=== PATIENT | male | born 1950 | race Caucasian/White ===

== ENCOUNTER 2018-06-14 10:39 | Outpatient (CLI) | payer MEDICARE, SELFPAY ==
--- NOTE | 2018-06-14 10:39 | DI.REPORT_ITS ---
SYMPTOMS/DIAGNOSIS: CHRONIC HEP C W/O HEPATIC COMA, B18.2, ? ADV FIBROSIS, ASSESS FOR SIGNS OF CIRRHOSIS ABDOMINAL ULTRASOUND: Routine examination. The proximal aorta was obscured by overlying bowel. The mid and distal aorta is of normal caliber. The liver is normal in size. There is diffuse increased echogenicity of the liver consistent with hepatic steatosis. Portal venous flow is normal. There does appear to be tiny echogenic focus in the right lobe of the liver which may represent a granuloma. No stones are seen within the gallbladder. No pericholecystic fluid is present. There does appear to be some irregular thickening of the wall of the gallbladder measuring just greater than 4 mm in thickness. There is a negative sonographic Jeong's sign. The common duct is distended at 1.2 cm. The pancreas, spleen and kidneys are unremarkable except for a 2.3 cm simple cyst in the right renal pelvis. IMPRESSION: 1. Thickening of the wall of the gallbladder with dilatation of the common duct to 1.2 cm. Further evaluation with a CT scan and/or MRCP is recommended. 2. Hepatic steatosis.
[2018-06-15 17:05] LABS: HBV DNA Detect/Quant, PCR Undetected IU/mL (Undetected)
== END 2018-06-14 10:40 ==
PROVIDERS: PCP Family Medicine; Visit Provider Physician Assistant Medical
DX: R76.8 Other specified abnormal immunological findings in serum (principal); B18.2 Chronic viral hepatitis C; K82.9 Disease of gallbladder, unspecified; K76.0 Fatty (change of) liver, not elsewhere classified
CPT/HCPCS: 76700; 36415; 87517

== ENCOUNTER 2018-10-06 17:35 | Outpatient (CLI) | payer MEDICARE, SELFPAY ==
[2018-10-06 18:15] LABS: Abs Immature Grans 0.11 k/cumm (0.0-0.09); Absolute Basophil Count 0.04 k/cumm (0.0-0.2); Absolute Eosinophil Count 0.17 k/cumm (0.0-0.7); Absolute Lymphocyte Count 2.07 k/cumm (1.2-3.4); Absolute Monocyte Count 1.22 k/cumm (0.11-0.7); Basophils % 0.5; HCT 44.4 % (40.0-50.0); HGB 15.1 g/dL (13.5-17.5); Immature Grans % 1.3; Lymphocytes % 24.6; Mean Corpuscular Hemoglobin 32.1 pg (27.0-33.0); Mean Corpuscular Volume 94.3 fL (80-95); Monocytes % 14.5; Neutrophils % 57.1; Platelet Count 201 x1000/uL (130-400); RBC 4.71 m/cumm (4.50-6.00); RBC Distribution Width 13.2 % (11.8-14.1); White Blood Cell Count 8.41 k/cumm (4.4-10.8)
[2018-10-06 19:25] LABS: ALT 26 U/L (12-78); AST 29 U/L (15-37); Albumin 3.7 g/dL (3.4-5.0); Alkaline Phosphatase 80 U/L (46-116); Anion Gap 11.4 mmol/L (3-11); BUN 7 mg/dL (7-18); Bilirubin, Total 0.7 mg/dL (0.2-1.0); CO2 25.6 mmol/L (21.0-32.0); CREATININE 0.63 mg/dL (0.70-1.30); Calcium 8.8 mg/dL (8.5-10.1); Chloride 98 mmol/L (98-107); Glucose 113 mg/dL (70-100); Potassium 3.7 mmol/L (3.5-5.1); Sodium 135 mmol/L (136-145); Total Protein 7.4 g/dL (6.4-8.2)
[2018-10-10 11:07] LABS: Hepatitis B Surface Ag Negative (NEGAT)
[2018-10-10 15:12] LABS: HCV RNA Detection Quantitative Undetected IU/mL (UNDECT)
== END 2018-10-06 17:55 ==
PROVIDERS: PCP Family Medicine; Visit Provider Physician Assistant Medical
DX: Z20.5 Contact with and (suspected) exposure to viral hepatitis (principal); B18.2 Chronic viral hepatitis C
CPT/HCPCS: 80053; 87340; 85025; 87522

== ENCOUNTER 2018-10-15 14:40 | Emergency (ER) | payer MEDICARE, SELFPAY ==
[2018-10-15 14:50] VITALS: BP 142/78; PULSE 100; RESP 16; TEMP 36.8; O2SAT 97
--- NOTE | 2018-10-15 15:21 | ED.GENADUL_ITS ---
Discharge Plan Disposition Patient Disposition: HOME Condition: Good Discharge Details Chief Complaint: SutureRem Clinical Impression: Encounter for staple removal Primary Care Provider: Ena Boo V ED Provider: Bassem Jeffries Home Meds and New Rx's Prescriptions: No Action trazodone 50 MG tablet 50 mg PO DAILY RF: 0 gabapentin 300 MG capsule 300 mg PO TID RF: 0 methadone 5 MG tablet 10 mg PO 10 tabs daily RF: 0 Discharge Instructions Instructions: Staple Care (ED) Additional Instructions: Continue to watch for any signs of infection and return immediately if these occur otherwise you may wash and clean the wound with mild soapy water. Follow- up with primary care provider as needed or return emergency department for any further emergent concerns you may have Referrals: Ena Boo MD [Primary Care Provider] - (As needed for reassessment) Discharge Data Discharge Date/Time-TO BE ENTERED AT DEPARTURE: 10/15/18 15:25 Medical Decision Making Patient presenting the emergency department for staple removal. Patient had 7 alireza placed in his head 1 week ago after head injury. Patient denies any new or worsening symptoms and states that he is simply here for staple removal. 7 alireza removed from patient's head without complication. Patient was encouraged to watch for signs of infection return for any new or worsening symptom HPI General Mode of arrival: ambulatory . Date/Time Provider Initiated Documentation: 10/15/18 14:50 . Limitations to Documentation: no limitations . Information obtained by: patient and RN notes reviewed . History of Present Illness 68 year old M presents to the emergency department with the chief complaint of Staple removal, Quality is described as other (denies pain), and is localized to the head. Patient notes no other symptoms.. Patient did receive the following treatments prior to arrival, none Related Data Home Medications Medication Instructions Recorded Confirmed gabapentin 300 mg PO TID tab-cap 02/10/16 methadone 10 mg PO 10 tabs daily tab-cap 02/10/16 trazodone 50 mg PO DAILY tab-cap 02/10/16 Allergies Allergy/AdvReac Type Severity Reaction Status Date / Time No Known Allergies Allergy Unverified 02/13/16 11:08 General Stated Complaint: SutureRem PRIMO: 5 Review of Systems Constitutional Denies chills, Denies fever(s) and Denies headache(s) ENT Denies dizziness and Denies headache(s) Cardiovascular Denies syncope Integumentary/Breasts Denies rash and Denies skin swelling Neurologic Denies dizziness, Denies syncope, Denies headache(s) and Denies lack of coordination [facility] Medical History Chronic pain due to trauma Compression fracture of lumbar vertebra DJD (degenerative joint disease) Depression Glaucoma Hepatitis C Iron deficiency anemia Narcotic dependence Testosterone deficiency Traumatic amputation of finger Surgical History traumatic amputation Social History Smoking/Tobacco Use Status: Current every day Exam Const General: cooperative, comfortable and no acute distress Orientation: alert, awake and oriented x3 HENMT Head: laceration (7 alireza placed superior scalp.No erythema, purulent drainage) Skin Rashes: no rashes Course Vital Signs Temperature 36.8 C 10/15/18 14:50 Pulse 100 H 10/15/18 14:50 Respiratory Rate 16 10/15/18 14:50 Blood Pressure 142/78 H 10/15/18 14:50 Pulse Oximetry 97 10/15/18 14:50 Temperature 36.8 C 10/15/18 14:50 Temperature Source Skin 10/15/18 14:50 Pulse 100 H 10/15/18 14:50 Respiratory Rate 16 10/15/18 14:50 Respiratory Effort Non-Labored 10/15/18 14:50 Blood Pressure 142/78 H 10/15/18 14:50 Blood Pressure Position Sitting 10/15/18 14:50 Pulse Oximetry 97 10/15/18 14:50 Oxygen Delivery Method Room Air 10/15/18 14:50 Oxygen Flow Rate 0 10/15/18 14:50 Pain Level 4 10/15/18 14:50
== END 2018-10-15 15:25 | disposition home or self-care (01) ==
PROVIDERS: Emergency Provider Nurse Practitioner Family; PCP Family Medicine
DX: S09.90XD Unspecified injury of head, subsequent encounter (principal); X58.XXXD Exposure to other specified factors, subsequent encounter; Z48.02 Encounter for removal of sutures
CPT/HCPCS: 99281

== ENCOUNTER 2018-11-16 17:00 | Outpatient (REF) | payer MEDICARE, SELFPAY ==
[2018-11-16 18:08] LABS: ETHANOL BLOOD < 3.0 mg/dL (<3)
[2018-11-21 15:29] LABS: Ethyl Glucuronide Screen, U Presumptive Positive ng/mL
[2018-11-22 03:51] LABS: EDDP-by GC-MS 643 ng/mL; Methadone Interpretation Positive.; Methadone-by GC-MS 909 ng/mL
[2018-11-24 09:12] LABS: Codeine Negative ng/mL (Cutoff: 25); Dihydrocodeine Negative ng/mL (Cutoff: 25); Hydrocodone Negative ng/mL (Cutoff: 25); Hydromorphone Negative ng/mL (Cutoff: 25); Morphine Negative ng/mL (Cutoff: 25); Naloxone Negative ng/mL (Cutoff: 25); Norhydrocodone Negative ng/mL (Cutoff: 25); Noroxycodone 3072 ng/mL (Cutoff: 25); Noroxymorphone Negative ng/mL (Cutoff: 25); Opiates Interpretation Positive.
== END 2018-11-16 17:20 ==
LOC: NCHCN 17:00
PROVIDERS: PCP Family Medicine; Visit Provider Family Medicine
DX: F11.20 Opioid dependence, uncomplicated (principal); G89.29 Other chronic pain
CPT/HCPCS: 80307; 80361; 80320; 80358

== ENCOUNTER 2018-11-28 02:46 | Outpatient (CLI) | payer MEDICARE, SELFPAY ==
[2018-11-28 13:28] LABS: Abs Immature Grans 0.09 k/cumm (0.0-0.09); Absolute Basophil Count 0.04 k/cumm (0.0-0.2); Absolute Eosinophil Count 0.05 k/cumm (0.0-0.7); Absolute Lymphocyte Count 1.57 k/cumm (1.2-3.4); Absolute Monocyte Count 0.98 k/cumm (0.11-0.7); Absolute Neutrophil Count 5.67 k/cumm (1.2-6.7); Basophils % 0.5; Eosinophils % 0.6; HCT 46.6 % (40.0-50.0); HGB 15.7 g/dL (13.5-17.5); Immature Grans % 1.1; Lymphocytes % 18.7; Mean Corp. HGB Concentration 33.7 g/dL (32.0-36.0); Mean Corpuscular Hemoglobin 31.8 pg (27.0-33.0); Mean Corpuscular Volume 94.5 fL (80-95); Mean Platelet Volume 9.4 fL (8.0-11.0); Monocytes % 11.7; Neutrophils % 67.4; Platelet Count 215 x1000/uL (130-400); RBC 4.93 m/cumm (4.50-6.00); RBC Distribution Width 12.2 % (11.8-14.1)
[2018-11-28 13:56] LABS: ALT 30 U/L (12-78); AST 44 U/L (15-37); Albumin 3.7 g/dL (3.4-5.0); Alkaline Phosphatase 100 U/L (46-116); Anion Gap 12.5 mmol/L (3-11); BUN 13 mg/dL (7-18); Bilirubin, Total 0.8 mg/dL (0.2-1.0); CO2 24.5 mmol/L (21.0-32.0); CREATININE 0.69 mg/dL (0.70-1.30); Calcium 9.1 mg/dL (8.5-10.1); Chloride 99 mmol/L (98-107); Glucose 113 mg/dL (70-100); Potassium 4.1 mmol/L (3.5-5.1); Sodium 136 mmol/L (136-145); Total Protein 7.7 g/dL (6.4-8.2)
[2018-11-29 11:27] LABS: Hepatitis B Surface Ag Negative (NEGAT)
[2018-11-29 14:38] LABS: HCV RNA Detection Quantitative Undetected IU/mL (UNDECT)
== END 2018-11-28 03:06 ==
PROVIDERS: PCP Family Medicine; Visit Provider Physician Assistant Medical
DX: B18.2 Chronic viral hepatitis C (principal); Z20.5 Contact with and (suspected) exposure to viral hepatitis
CPT/HCPCS: 36415; 80053; 87340; 85025; 87522

== ENCOUNTER 2019-01-20 06:23 | Outpatient (CLI) | payer MEDICARE, SELFPAY ==
--- NOTE | 2019-01-20 12:21 | DI.US_ITS ---
SYMPTOMS/DIAGNOSIS: CHRONIC HEP C WITHOUT HEPATIC COMA, B18.2, ABD BLOATING, R14.0, ABNL FINDINGS ON DIAGNOSTIC IMAGING OF LIVER AND BILIARY TRACT, R93.2, ? CIRRHOSIS, ? ASCITES ABDOMINAL ULTRASOUND: The patient has known gallbladder wall thickening with a mass like appearance. This finding is again seen with mass like finding in gallbladder fundus measuring roughly 2 cm in diameter. No definite cholelithiasis. The common duct is mildly dilated at 12 mm, unchanged from 06/14/18. No gross intrahepatic biliary dilatation. There is increased hepatic echogenicity which may represent hepatic steatosis. The hepatic contour is fairly smooth without nodularity. Tiny left lobe hepatic cyst and tiny right lobe calcified lesion again identified. Portal venous flow is normal. The kidneys unremarkable in appearance with an incidental peripelvic pelvic cyst. Pancreas not well visualized. CONCLUSION: 1. Findings consistent with gallbladder mass, the patient reports a biopsy is planned to exclude gallbladder carcinoma. 2. No evidence of ascites or cirrhosis. Normal directional portal flow noted.
== END 2019-01-20 06:43 ==
PROVIDERS: PCP Family Medicine; Visit Provider Physician Assistant Medical
DX: B18.2 Chronic viral hepatitis C (principal); R14.0 Abdominal distension (gaseous); R93.2 Abnormal findings on diagnostic imaging of liver and biliary tract; K82.8 Other specified diseases of gallbladder; K76.0 Fatty (change of) liver, not elsewhere classified
CPT/HCPCS: 76700

== ENCOUNTER 2019-12-21 13:30 | Outpatient (REF) | payer MEDICARE, SELFPAY ==
[2019-12-21 19:47] LABS: HCT 45.7 % (40.0-50.0); HGB 14.9 g/dL (13.5-17.5)
[2019-12-21 19:50] LABS: ALT 25 U/L (16-63); AST 28 U/L (15-37); Alkaline Phosphatase 120 U/L (46-116); Anion Gap 10.9 mmol/L (3-11); BUN 10 mg/dL (7-18); Bilirubin, Total 0.4 mg/dL (0.2-1.0); CO2 25.1 mmol/L (21.0-32.0); CREATININE 0.67 mg/dL (0.70-1.30); Calcium 8.6 mg/dL (8.5-10.1); Calculated LDL 75 mg/dL (<100); Chloride 101 mmol/L (98-107); Cholesterol 151 mg/dL (<200); Glucose 108 mg/dL (74-106); HDL Cholesterol 58 mg/dL (40-60); Potassium 4.2 mmol/L (3.5-5.1); Sodium 137 mmol/L (136-145); Total Protein 7.4 g/dL (6.4-8.2); Triglyceride 93 mg/dL (<150)
[2019-12-21 20:24] LABS: Hemoglobin A1C 5.7 % (3.8-5.6)
[2019-12-25 11:20] LABS: PSA, Screening 0.8 ng/mL (0.0-6.5)
[2019-12-27 10:55] LABS: Testosterone, Free 20.1 ng/dL (3.28-12.2); Testosterone, Total 774 ng/dL (240-950)
== END 2019-12-21 13:50 ==
LOC: NCHCN 13:30
PROVIDERS: PCP Family Medicine; Visit Provider Family Medicine
DX: D50.9 Iron deficiency anemia, unspecified (principal); B19.20 Unspecified viral hepatitis C without hepatic coma; R73.03 Prediabetes; F10.10 Alcohol abuse, uncomplicated; Z12.5 Encounter for screening for malignant neoplasm of prostate
CPT/HCPCS: 80053; 80061; 84153; 84402; 84403; 83036; 85014; 85018

== ENCOUNTER 2020-11-06 18:14 | Outpatient (REF) | payer MEDICARE, SELFPAY ==
[2020-11-10 11:19] LABS: Codeine Negative ng/mL (Cutoff: 25); Dihydrocodeine Negative ng/mL (Cutoff: 25); Hydrocodone Negative ng/mL (Cutoff: 25); Hydromorphone Negative ng/mL (Cutoff: 25); Morphine Negative ng/mL (Cutoff: 25); Naloxone Negative ng/mL (Cutoff: 25); Norhydrocodone Negative ng/mL (Cutoff: 25); Noroxycodone 292 ng/mL (Cutoff: 25); Noroxymorphone Negative ng/mL (Cutoff: 25); Opiates Interpretation Positive.
== END 2020-11-06 18:34 ==
LOC: NCHCN 18:14
PROVIDERS: PCP Family Medicine; Visit Provider Family Medicine
DX: G89.29 Other chronic pain (principal); Z79.891 Long term (current) use of opiate analgesic
CPT/HCPCS: 80361; 80362

== ENCOUNTER 2020-11-13 17:59 | Outpatient (REF) | payer MEDICARE, SELFPAY ==
[2020-11-16 16:51] LABS: Codeine Negative ng/mL (Cutoff: 25); Dihydrocodeine Negative ng/mL (Cutoff: 25); Hydrocodone Negative ng/mL (Cutoff: 25); Hydromorphone 470 ng/mL (Cutoff: 25); Morphine Negative ng/mL (Cutoff: 25); Naloxone Negative ng/mL (Cutoff: 25); Norhydrocodone Negative ng/mL (Cutoff: 25); Noroxycodone 2151 ng/mL (Cutoff: 25); Noroxymorphone Negative ng/mL (Cutoff: 25); Opiates Interpretation Positive.
== END 2020-11-13 18:19 ==
LOC: NCHCN 17:59
PROVIDERS: PCP Family Medicine; Visit Provider Family Medicine
DX: G89.29 Other chronic pain (principal); Z79.891 Long term (current) use of opiate analgesic
CPT/HCPCS: 80361; 80362

== ENCOUNTER 2021-03-05 18:20 | Emergency (ER) | payer MEDICARE, SELFPAY ==
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
[2021-03-05 18:26] VITALS: BP 140/86; PULSE 114; RESP 20; TEMP 36.1; O2SAT 97
== END 2021-03-05 18:55 | disposition home or self-care (01) ==
PROVIDERS: Emergency Provider Physician Assistant; PCP Family Medicine
DX: R68.84 Jaw pain (principal); R22.0 Localized swelling, mass and lump, head; K04.7 Periapical abscess without sinus
CPT/HCPCS: 99283

== ENCOUNTER 2021-03-14 14:38 | Outpatient (CLI) | payer MEDICARE, SELFPAY ==
--- NOTE | 2021-03-14 | DI.RAD_ITS ---
Exam(s) XR HIP LT COMPLETE AP PELVIS EXAM: XR HIP LT COMPLETE AP PELVIS CLINICAL HISTORY: LT HIP PAIN M25.559. TECHNIQUE: 2D digital imaging was performed. COMPARISON: No exams were available for comparison FINDINGS: BONES: No acute fracture is present. No bony destructive lesion is seen. JOINTS: No dislocation present. There is mild bilateral acetabular spurring. There is mild narrowing of the right hip joint. The sacroiliac joints are well maintained as is the symphysis pubis. SOFT TISSUE: Normal. IMPRESSION: Mild degenerative changes of the hips bilaterally. DATA REPOSITORY: RADIATION DOSE DELIVERED:
== END 2021-03-14 14:58 ==
PROVIDERS: PCP Family Medicine; Visit Provider Family Medicine
DX: M25.552 Pain in left hip (principal); M16.0 Bilateral primary osteoarthritis of hip
CPT/HCPCS: 73502

== ENCOUNTER 2021-05-22 17:11 | Outpatient (REF) | payer MEDICARE, SELFPAY ==
[2021-05-22 20:27] LABS: ALT 71 U/L (16-63); AST 70 U/L (15-37); Alkaline Phosphatase 119 U/L (46-116); Anion Gap 10.9 mmol/L (3-11); BUN 14 mg/dL (7-18); Bilirubin, Total 0.5 mg/dL (0.2-1.0); CO2 26.1 mmol/L (21.0-32.0); CREATININE 0.7 mg/dL (0.70-1.30); Calcium 8.8 mg/dL (8.5-10.1); Chloride 102 mmol/L (98-107); Glucose 103 mg/dL (74-106); Potassium 4.2 mmol/L (3.5-5.1); Sodium 139 mmol/L (136-145); TSH (W/Ref FT4) 2.95 uIU/mL (0.36-3.74); Total Protein 7.2 g/dL (6.4-8.2); Vitamin B12 1163 pg/mL (193-986)
[2021-05-23 18:21] LABS: PSA, Screening 0.7 ng/mL (0.0-6.5)
[2021-05-26 09:09] LABS: AFP Tumor Marker <2.5 ng/mL (<8.1)
[2021-05-31 14:45] LABS: Testosterone, Free 3.88 ng/dL (3.28-12.2); Testosterone, Total 155 ng/dL (240-950)
== END 2021-05-22 17:12 | disposition home or self-care (01) ==
LOC: NCHCN 17:11
PROVIDERS: PCP Family Medicine; Visit Provider Family Medicine
DX: B19.20 Unspecified viral hepatitis C without hepatic coma (principal); Z12.5 Encounter for screening for malignant neoplasm of prostate; E29.1 Testicular hypofunction
CPT/HCPCS: 80053; 84153; 84402; 84403; 82105; 82607; 84443

== ENCOUNTER 2021-08-28 14:16 | Emergency (ER) | payer MEDICARE, SELFPAY ==
[2021-08-28 14:25] VITALS: BP 132/85; PULSE 104; RESP 18; TEMP 36.4; O2SAT 96
--- NOTE | 2021-08-28 14:54 | W.ED.GENAD ---
Discharge Plan Disposition Patient Disposition: HOME Discharge Details Clinical Impression: Dental infection Primary Care Provider: Ena Boo V ED Provider: Cierra Lindquist Home Meds and New Rx's Prescriptions: Continued amitriptyline 10 mg tablet 20 mg PO QHS RF: 0 nicotine (polacrilex) [Nicorette] 4 mg lozenge 4 mg MM Q4H RF: 0 nicotine [Nicoderm CQ] 14 mg/24 hr patch 24 hour 1 patch TD DAILY RF: 0 oxycodone 10 mg tablet 10 mg PO QID RF: 0 metformin 500 mg tablet 500 mg PO BID RF: 0 methadone 10 mg tablet 30 mg PO Q6H RF: 0 methadone 10 mg tablet 60 mg PO BID RF: 0 multivitamin tablet 1 tab PO DAILY RF: 0 albuterol sulfate [ProAir HFA] 90 mcg/actuation HFA aerosol inhaler 2 puff IH Q6H PRNRF: 0 testosterone 50 mg/5 gram (1 %) gel 1 packet TD DAILY RF: 0 latanoprost [Xalatan] 0.005 % drops 1 drp OP QPM RF: 0 trazodone 50 MG tablet 50 mg PO DAILY RF: 0 gabapentin 300 MG capsule 300 mg PO TID RF: 0 methadone 5 MG tablet 10 mg PO 10 tabs daily RF: 0 Discharge Data Discharge Date/Time-TO BE ENTERED AT DEPARTURE: 08/28/21 15:12 Medical Decision Making I was evaluating the patient and asked him which she specifically was bothering him, he then replied that I had already asked him 3 times and that it was a call, I responded that I was going to give him a minute to reassess his and that I would return once he has continued to have a conversation in a polite manner and he replied that I was incompetent and told me that he was leaving Patient is alert, oriented, of decisional capacity This patient does not need antibiotics and has been obviously. She He does have an appointment scheduled with his dentist on the , as she left prior to my complete evaluation and assessment, he has not received any antibiotics from me and would benefit from antibiotic and close reassessment with his dentist this week He has left against our medical recommendation, he is competent to make decisions Medical Records Medical records reviewed: Yes I reviewed the patient's medical records. HPI General Date/Time Provider Initiated Documentation: 08/28/21 14:34. Limitations to Documentation: no limitations. Information obtained by: patient. HPI Narrative: This 71-year-old gentleman presents with report of left-sided dental pain for the past 4 to 5 days. He denies any chest pain or shortness of breath. He denies any dizziness or weakness. He denies any difficulty swallowing. Related Data Home Medications Medication Instructions Recorded Confirmed gabapentin 300 mg PO TID tab-cap 02/10/16 08/28/21 methadone 10 mg PO 10 tabs daily tab-cap 02/10/16 08/28/21 trazodone 50 mg PO DAILY tab-cap 02/10/16 08/28/21 albuterol sulfate 90 mcg/actuation 2 puff IH Q6H PRN 01/23/19 08/28/21 aerosol inhaler amitriptyline 10 mg tablet 20 mg PO QHS tab 01/23/19 08/28/21 latanoprost 0.005 % eye drops 1 drp OP QPM 01/23/19 08/28/21 metformin 500 mg tablet 500 mg PO BID 01/23/19 08/28/21 methadone 10 mg tablet 30 mg PO Q6H tab 01/23/19 08/28/21 methadone 10 mg tablet 60 mg PO BID tab 01/23/19 08/28/21 multivitamin 1 tab PO DAILY 01/23/19 08/28/21 nicotine (polacrilex) 4 mg buccal 4 mg MM Q4H 01/23/19 08/28/21 lozenge nicotine 14 mg/24 hr daily 1 patch TD DAILY 01/23/19 08/28/21 transdermal patch oxycodone 10 mg tablet 10 mg PO QID tab 01/23/19 08/28/21 testosterone 50 mg/5 gram (1 %) 1 packet TD DAILY 01/23/19 08/28/21 transdermal gel Allergies Allergy/AdvReac Type Severity Reaction Status Date / Time No Known Allergies Allergy Unverified 08/28/21 14:27 General Stated Complaint: DentalOral PRIMO: 3 Review of Systems All systems reviewed & are unremarkable except as noted in HPI and below [facility] Medical History (Updated 08/29/21 @ 18:35 by BARBARA Contreras) Anxiety Arthritis Ataxia Babesiosis Back pain Cellulitis and abscess of foot Chronic pain Chronic pain due to trauma Closed head injury Complicated grieving Compression fracture Compression fracture of lumbar vertebra Depression DJD (degenerative joint disease) Dyspnea on exertion Dystonic tremor Elevated blood sugar Exposure to mercury Fatigue due to old head injury Glaucoma Hepatitis C Insect bite Iron deficiency anemia Lumbar radiculopathy Lyme disease Narcotic dependence Neuropathy Pre-diabetes Reaction, situational Testosterone deficiency Tobacco dependence Trauma Traumatic amputation of finger Surgical History traumatic amputation Social History (Updated 01/23/19 @ 14:50 by Cat Andersen LPN) Smoking/Tobacco Use Status: Current every day Tobacco Type: cigarettes Smoking risk assessment performed?: Yes Alcohol Intake: never Drug use: Daily Substance use type: marijuana Do you feel safe at home: Yes Do you feel safe in your relationship?: Yes Exam Const General: no acute distress Orientation: alert and oriented x3 [facility] Teeth image: 1. Widespread dental decay, #18 fractured and decayed, no soft palate induration or evidence of significant deep space infection, uvula midline, no trismus Eyes Pupils: PERRL Neck Other: No submandibular edema or erythema, no stridor Resp Effort & Inspection: normal respiratory effort Cardio Rate: regular rate Skin General skin exam: no rashes or lesions noted Neuro General: patient alert and patient oriented x3 Course Vital Signs Vital signs: Vital Signs Temperature 36.4 C L 08/28/21 14:25 Pulse 104 H 08/28/21 14:25 Respiratory Rate 18 08/28/21 14:25 Blood Pressure 132/85 08/28/21 14:25 Pulse Oximetry 96 08/28/21 14:25 Temperature 36.4 C L 08/28/21 14:25 Temperature Source Temporal Artery Scan 08/28/21 14:25 Pulse 104 H 08/28/21 14:25 Respiratory Rate 18 08/28/21 14:25 Respiratory Effort Non-Labored 08/28/21 14:29 Blood Pressure 132/85 08/28/21 14:25 Pulse Oximetry 96 08/28/21 14:25 Oxygen Delivery Method Room Air 08/28/21 14:25 Oxygen Flow Rate 0 08/28/21 14:25 Pain Level 8 08/28/21 14:29
== END 2021-08-28 15:12 | disposition home or self-care (01) ==
PROVIDERS: Emergency Provider Physician Assistant; PCP Family Medicine
DX: R68.84 Jaw pain (principal); R22.0 Localized swelling, mass and lump, head; K04.7 Periapical abscess without sinus; Z53.29 Procedure and treatment not carried out because of patient's decision for other reasons
CPT/HCPCS: 99282

== ENCOUNTER 2021-09-26 15:13 | Outpatient (REF) | payer MEDICARE, SELFPAY ==
[2021-09-26 14:37] LABS: Hemoglobin A1C 5.5 % (<5.7)
[2021-09-26 15:11] LABS: ALT 41 U/L (16-63); AST 41 U/L (15-37); Albumin 3.7 g/dL (3.4-5.0); Alkaline Phosphatase 127 U/L (46-116); Bilirubin, Direct 0.2 mg/dL (0.0-0.2); Bilirubin, Total 0.5 mg/dL (0.2-1.0); Total Protein 7.1 g/dL (6.4-8.2)
[2021-09-29 09:23] LABS: AFP Tumor Marker <2.5 ng/mL (<8.1)
== END 2021-09-26 15:14 | disposition home or self-care (01) ==
LOC: NCHCN 15:13
PROVIDERS: PCP Family Medicine; Visit Provider Family Medicine
DX: R73.03 Prediabetes (principal); R79.89 Other specified abnormal findings of blood chemistry
CPT/HCPCS: 80076; 82105; 83036

== ENCOUNTER 2022-05-01 17:02 | Outpatient (REF) | payer MEDICARE, SELFPAY ==
[2022-05-01 19:37] LABS: Hemoglobin A1C 5.6 % (<5.7)
[2022-05-01 19:39] LABS: ALT 34 U/L (16-63); AST 38 U/L (15-37); Albumin 3.8 g/dL (3.4-5.0); Alkaline Phosphatase 184 U/L (46-116); Bilirubin, Direct 0.1 mg/dL (0.0-0.2); Bilirubin, Total 0.4 mg/dL (0.2-1.0); Total Protein 7.9 g/dL (6.4-8.2)
[2022-05-04 11:55] LABS: AFP Tumor Marker <2.5 ng/mL (<8.1)
== END 2022-05-01 17:03 | disposition home or self-care (01) ==
LOC: NCHCN 17:02
PROVIDERS: PCP Family Medicine; Visit Provider Family Medicine
DX: R79.89 Other specified abnormal findings of blood chemistry (principal); R73.03 Prediabetes; B18.2 Chronic viral hepatitis C
CPT/HCPCS: 80076; 82105; 83036

== ENCOUNTER 2022-08-14 17:03 | Outpatient (CLI) | payer MEDICARE, SELFPAY | END 2022-08-14 17:04 | disposition home or self-care (01) | LOC: DI.CM 17:04 | PROVIDERS: PCP Family Medicine; Visit Provider Nurse Practitioner Family | CPT/HCPCS: 93010 ==

== ENCOUNTER 2022-08-14 20:00 | Emergency (ER) | payer MEDICARE, SELFPAY ==
[2022-08-14 20:27] VITALS: BP 128/79; PULSE 96; RESP 15; TEMP 36.3; O2SAT 98
--- NOTE | 2022-08-14 20:34 | W.ED.GENAD ---
Discharge Plan Disposition Patient Disposition: ELOPED Condition: Stable Discharge Details Clinical Impression: Cellulitis Primary Care Provider: Ena Boo V ED Provider: Edda Alston Home Meds and New Rx's Prescriptions: No Action nicotine (polacrilex) [Nicorette] 4 mg lozenge 4 mg MM Q4H nicotine [Nicoderm CQ] 14 mg/24 hr patch 24 hour 1 patch TD DAILY oxycodone 10 mg tablet 10 mg PO QID metformin 500 mg tablet 500 mg PO BID methadone 10 mg tablet 30 mg PO Q6H methadone 10 mg tablet 60 mg PO BID multivitamin tablet 1 tab PO DAILY albuterol sulfate [ProAir HFA] 90 mcg/actuation HFA aerosol inhaler 2 puff IH Q6H PRN testosterone 50 mg/5 gram (1 %) gel 1 packet TD DAILY latanoprost [Xalatan] 0.005 % drops 1 drp OP QPM methadone 5 MG tablet 10 mg PO 10 tabs daily amitriptyline 10 mg tablet 10 mg PO QHS pregabalin 75 mg capsule 150 mg PO QHS Medical Decision Making 71-year-old male presents to the ER with chief complaint of bilateral lower extremity swelling and erythema which he noted the erythema couple days ago. He has had chronic edema to his lower extremities he reports having been seen previously at [facility]. He was seen by his PCP prior to arrival at [facility] and was referred here to the ER. Work-up ordered including CBC CMP, proBNP due to leg swelling, lactate, blood cultures x2 2055: Patient seen walking out of department, prior to full workup and evaluation. Patient eloped from department. HPI General Mode of arrival: ambulatory. Date/Time Provider Initiated Documentation: 08/14/22 20:08. Limitations to Documentation: no limitations. Information obtained by: patient, RN/MD ([facility] RN notes reviewed and old records reviewed. HPI Narrative: 71-year-old male presents to the ER with chief complaint of bilateral lower extremity swelling and erythema which he noted the erythema couple days ago. He has had chronic edema to his lower extremities he reports having been seen previously at [facility]. He was seen by his PCP prior to arrival at [facility] and was referred here to the ER. Reports of 1 month bilateral lower extremity edema and pain. Past medical history includes hep C prediabetes, Lyme disease smoker he is on methadone. Related Data Home Medications Medication Instructions Recorded Confirmed methadone 5 mg tablet 10 mg PO 10 tabs daily 02/10/16 08/14/22 albuterol sulfate 90 mcg/actuation 2 puff inhalation Q6H PRN 01/23/19 08/14/22 aerosol inhaler (ProAir HFA) latanoprost 0.005 % eye drops 1 drp ophthalmic (eye) QPM 01/23/19 08/14/22 (Xalatan) metformin 500 mg tablet 500 mg PO BID 01/23/19 08/14/22 methadone 10 mg tablet 30 mg PO Q6H 01/23/19 08/14/22 methadone 10 mg tablet 60 mg PO BID 01/23/19 08/14/22 multivitamin 1 tab PO DAILY 01/23/19 08/28/21 nicotine (polacrilex) 4 mg buccal 4 mg mucous membrane Q4H 01/23/19 08/14/22 lozenge (Nicorette) nicotine 14 mg/24 hr daily 1 patch transdermal DAILY 01/23/19 08/14/22 transdermal patch (Nicoderm CQ) oxycodone 10 mg tablet 10 mg PO QID 01/23/19 08/14/22 testosterone 50 mg/5 gram (1 %) 1 packet transdermal DAILY 01/23/19 08/14/22 transdermal gel amitriptyline 10 mg tablet 10 mg PO QHS 06/25/22 08/14/22 pregabalin 75 mg capsule 150 mg PO QHS 06/25/22 08/14/22 Allergies Allergy/AdvReac Type Severity Reaction Status Date / Time No Known Allergies Allergy Unverified 08/28/21 14:27 General Stated Complaint: GenMedical PRIMO: 3 Review of Systems All systems reviewed & are unremarkable except as noted in HPI and below Cardiovascular Cardiovascular: Reports pedal edema, Reports leg ulcers and Reports leg edema Musculoskeletal Musculoskeletal: Reports as per HPI Integumentary/Breasts Skin/Breast: Reports erythema, Reports skin pain and Reports skin swelling COUNTS INCLUDE 234 BEDS AT THE [facility] All Active Problems (Updated 08/14/22 @ 22:43 by Edda Alston NP) Cellulitis (Acute) Reflex sympathetic dystrophy of the leg (Acute) Alcohol abuse (Chronic) Foot pain (Acute) Urinary frequency (Acute) Hip pain, left (Acute) Elevated liver function tests (Acute) Dental infection (Acute) Dental caries (Acute) Medical History Anxiety Arthritis Ataxia Babesiosis Back pain Cellulitis and abscess of foot Chronic pain Chronic pain due to trauma Closed head injury Complicated grieving Compression fracture Compression fracture of lumbar vertebra Concussion with loss of consciousness Depression DJD (degenerative joint disease) Dyspnea on exertion Dystonic tremor Elevated blood sugar Exposure to mercury Fatigue due to old head injury Glaucoma Hepatitis C Insect bite Iron deficiency anemia Lumbar radiculopathy Lyme disease Narcotic dependence Neuropathy Pre-diabetes Reaction, situational Testosterone deficiency Tobacco dependence Trauma Traumatic amputation of finger Surgical History S/P cholecystectomy traumatic amputation Social History Smoking/Tobacco Use Status: Current every day Tobacco Type: cigarettes Smoking risk assessment performed?: Yes Alcohol Intake: never Drug use: Daily Substance use type: marijuana current occupation: disabled What is your relationship status?: Panel score (0-1 are the most socially isolated patients): 0 Do you feel safe at home: Yes Do you feel safe in your relationship?: Yes Exam Extrem Right lower extremity: edema, lower leg Details: erythema, ankle and foot Left lower extremity: edema, lower leg Details: erythema, ankle and foot Course Vital Signs Vital signs: Vital Signs Temperature 36.3 C L 08/14/22 20:27 Pulse 96 H 08/14/22 20:27 Respiratory Rate 15 08/14/22 20:27 Blood Pressure 128/79 08/14/22 20:27 Pulse Oximetry 98 08/14/22 20:27 Temperature 36.3 C L 08/14/22 20:27 Temperature Source Oral 08/14/22 20:27 Pulse 96 H 08/14/22 20:27 Respiratory Rate 15 08/14/22 20:27 Blood Pressure 128/79 08/14/22 20:27 Blood Pressure Position Sitting 08/14/22 20:27 Pulse Oximetry 98 08/14/22 20:27 Oxygen Delivery Method Room Air 08/14/22 20:27 Oxygen Flow Rate 0 08/14/22 20:27 Pain Level 5 08/14/22 20:27 Lab/Test Results Lab/Test Results: 08/14/22 20:32 Blood Blood Culture - Pending 08/14/22 20:32 Blood Blood Culture - Pending
[2022-08-14 20:40] VITALS: RESP 12
== END 2022-08-14 20:54 ==
PROVIDERS: Emergency Provider Registered Nurse Emergency; PCP Family Medicine
DX: L03.115 Cellulitis of right lower limb (principal); L03.116 Cellulitis of left lower limb; Z53.20 Procedure and treatment not carried out because of patient's decision for unspecified reasons
CPT/HCPCS: 80053; 87040; 99281; 83605; 83735; 83880; 85025; 99282

== ENCOUNTER 2023-02-05 14:08 | Emergency (ER) | payer OTHER, SELFPAY ==
[2023-02-05 14:12] VITALS: BP 140/92; PULSE 110; RESP 18; TEMP 36.6; O2SAT 97
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
--- NOTE | 2023-02-05 15:09 | DI.RAD_ITS ---
Exam(s) XR FEMUR LT EXAM: XR FEMUR LT CLINICAL HISTORY: pain, injury, tender prox femur. TECHNIQUE: 2D digital imaging was performed. COMPARISON: No exams were available for comparison FINDINGS: Two views-AP and lateral. No evidence of fracture. No knee joint effusion. No osseous lesions. IMPRESSION: No fracture. DATA REPOSITORY: RADIATION DOSE DELIVERED:
[2023-02-05] MEDS: Lidocaine 5% Patch 1 PATCH TP (15:37)
--- NOTE | 2023-02-08 12:28 | NUR.NOTE ---
Nursing Note: Patient called asking for the date, time he was here. He was here 02/05,arrived @ 1408 and left @ 8934.
== END 2023-02-05 15:42 | disposition home or self-care (01) ==
PROVIDERS: Emergency Provider Student in an Organized Health Care Education/Training Program; PCP Family Medicine
DX: S80.12XA Contusion of left lower leg, initial encounter (principal); W22.03XA Walked into furniture, initial encounter
CPT/HCPCS: 73552; 99283; 99284

== ENCOUNTER 2023-04-01 13:07 | Outpatient (REF) | payer OTHER, SELFPAY ==
[2023-04-01 15:59] LABS: HGB 15.6 g/dL (13.5-17.5); MCH 30.8 pg (27.0-33.0); MCHC 33.9 % (32.0-36.0); MCV 91 fL (80-95); MPV 8.9 fL (8.0-11.0); Platelet Count 317 10^3/uL (130-400); RBC 5.07 10^6/uL (4.36-5.78); RDW 12.5 % (11.8-14.1); RDW-SD 41.1 fL; WBC 8.81 10^3/uL (4.4-10.8)
[2023-04-01 16:18] LABS: Hemoglobin A1C 5.7 % (<5.7)
[2023-04-01 16:24] LABS: ALT 44 U/L (16-63); AST 51 U/L (15-37); Albumin 3.5 g/dL (3.4-5.0); Alkaline Phosphatase 177 U/L (46-116); Anion Gap 7.6 mmol/L (3-11); BUN 6 mg/dL (7-18); Bilirubin, Total 0.5 mg/dL (0.2-1.0); CO2 28.4 mmol/L (21.0-32.0); CREATININE 0.7 mg/dL (0.70-1.30); Chloride 97 mmol/L (98-107); Estimated GFR 96.69 (mL/min/1.73m2); Glucose 115 mg/dL (74-106); Potassium 4.1 mmol/L (3.5-5.1); Sodium 133 mmol/L (136-145); Total Protein 7.6 g/dL (6.4-8.2)
== END 2023-04-01 13:08 | disposition home or self-care (01) ==
LOC: NCHCN 13:07
PROVIDERS: PCP Family Medicine; Visit Provider Family Medicine
DX: R79.89 Other specified abnormal findings of blood chemistry (principal); F43.20 Adjustment disorder, unspecified; G89.29 Other chronic pain; D50.9 Iron deficiency anemia, unspecified; B19.20 Unspecified viral hepatitis C without hepatic coma
CPT/HCPCS: 80053; 85027; 83036

== ENCOUNTER 2023-05-04 16:23 | Outpatient (REF) | payer OTHER, SELFPAY ==
[2023-05-04 19:35] LABS: *AMPHETAMINES SCREEN URINE Negative (Negative); *BARBITURATES SCREEN URINE Negative (Negative); *BENZODIAZEPINES SCREEN URINE Negative (Negative); Cannabinoids THC Negative (Negative); Cocaine Screen,Urine Negative (Negative); METHADONE URINE SCREEN Positive (Negative); OPIATES URINE SCREEN Positive (Negative); Tricyclic Antidepressants Positive (Negative)
[2023-05-11 10:25] LABS: Codeine Negative ng/mL (Cutoff: 25); Dihydrocodeine Negative ng/mL (Cutoff: 25); Hydrocodone Negative ng/mL (Cutoff: 25); Hydromorphone 5297 ng/mL (Cutoff: 25); Morphine Negative ng/mL (Cutoff: 25); Naloxone Negative ng/mL (Cutoff: 25); Norhydrocodone Negative ng/mL (Cutoff: 25); Noroxymorphone 510 ng/mL (Cutoff: 25); Opiates Interpretation Positive.
== END 2023-05-04 16:24 | disposition home or self-care (01) ==
LOC: NCHCN 16:23
PROVIDERS: PCP Family Medicine; Visit Provider Family Medicine
DX: Z51.81 Encounter for therapeutic drug level monitoring (principal)
CPT/HCPCS: 80307; 80361; 80362; 80365

== ENCOUNTER → 2023-08-18 15:13 | Outpatient (BNVA) | payer OTHER, SELFPAY | PROVIDERS: PCP Family Medicine; Referring Provider Family Medicine; Visit Provider Podiatrist | DX: B35.1 Tinea unguium (principal); M79.672 Pain in left foot; M79.671 Pain in right foot; I73.89 Other specified peripheral vascular diseases; E11.42 Type 2 diabetes mellitus with diabetic polyneuropathy; L84 Corns and callosities | CPT/HCPCS: 11055 ==

== ENCOUNTER 2023-09-03 20:53 | Outpatient (REF) | payer OTHER, SELFPAY ==
[2023-09-03 19:30] LABS: HCT 44.5 % (40.0-50.0); HGB 14.4 g/dL (13.5-17.5); MCH 28.7 pg (27.0-33.0); MCHC 32.4 % (32.0-36.0); MCV 89 fL (80-95); MPV 9.4 fL (8.0-11.0); Platelet Count 293 10^3/uL (130-400); RBC 5.02 10^6/uL (4.36-5.78); RDW 12.7 % (11.8-14.1); RDW-SD 41.4 fL; WBC 9.04 10^3/uL (4.4-10.8)
[2023-09-03 19:32] LABS: ESR 8 mm/hr (0-20)
[2023-09-03 19:40] LABS: ALT 44 U/L (16-63); AST 54 U/L (15-37); Albumin 3.8 g/dL (3.4-5.0); Alkaline Phosphatase 178 U/L (46-116); Anion Gap 7.1 mmol/L (3-11); BUN 6 mg/dL (7-18); Bilirubin, Total 0.4 mg/dL (0.2-1.0); C-Reactive Protein 0.14 mg/dL (0.0-0.3); CO2 28.9 mmol/L (21.0-32.0); CREATININE 0.7 mg/dL (0.70-1.30); Calcium 9.5 mg/dL (8.5-10.1); Chloride 97 mmol/L (98-107); Estimated GFR 96.69 (mL/min/1.73m2); Glucose 106 mg/dL (74-106); Potassium 4.1 mmol/L (3.5-5.1); Sodium 133 mmol/L (136-145); Total Protein 7.7 g/dL (6.4-8.2)
[2023-09-03 19:44] LABS: Hemoglobin A1C 5.8 % (<5.7)
== END 2023-09-03 20:54 | disposition home or self-care (01) ==
LOC: NCHCN 20:53
PROVIDERS: PCP Family Medicine; Visit Provider Family Medicine
DX: R73.03 Prediabetes (principal); G62.9 Polyneuropathy, unspecified; D50.9 Iron deficiency anemia, unspecified; R53.83 Other fatigue
CPT/HCPCS: 80053; 85027; 85652; 83036; 86140

== ENCOUNTER 2023-11-04 15:44 | Outpatient (REF) | payer OTHER, SELFPAY | END 2023-11-04 15:45 | disposition home or self-care (01) | LOC: NCHCN 15:44 | PROVIDERS: PCP Family Medicine; Visit Provider Family Medicine | DX: L03.115 Cellulitis of right lower limb (principal) | CPT/HCPCS: 87077; 87070; 87186; 87205 ==

== ENCOUNTER → 2023-11-23 15:39 | Outpatient (BNVA) | payer OTHER, SELFPAY | PROVIDERS: PCP Family Medicine; Referring Provider Family Medicine; Visit Provider Podiatrist | DX: L02.612 Cutaneous abscess of left foot (principal); L97.522 Non-pressure chronic ulcer of other part of left foot with fat layer exposed; L97.912 Non-pressure chronic ulcer of unspecified part of right lower leg with fat layer exposed; M79.661 Pain in right lower leg; L84 Corns and callosities; M79.672 Pain in left foot; M79.671 Pain in right foot; I73.9 Peripheral vascular disease, unspecified; E11.9 Type 2 diabetes mellitus without complications; L03.115 Cellulitis of right lower limb; L60.3 Nail dystrophy; L60.2 Onychogryphosis; R09.89 Other specified symptoms and signs involving the circulatory and respiratory systems; R23.4 Changes in skin texture | CPT/HCPCS: 10060; 11042; 11721 ==

== ENCOUNTER 2023-11-23 16:31 | Inpatient (IN) | payer OTHER, SELFPAY ==
[2023-11-23] VITALS (10 sets, daily range): BP systolic 121–154; BP diastolic 72–94; PULSE 92–112; RESP 16–23; TEMP 36.9; O2SAT 96–100
--- NOTE | 2023-11-23 16:45 | DI.RAD_ITS ---
Exam(s) XR FOOT RT COMPLETE EXAM: XR FOOT RT COMPLETE CLINICAL HISTORY: FOOT INFECTION. TECHNIQUE: 2D digital imaging was performed. COMPARISON: No exams were available for comparison FINDINGS: 3 views No evidence of acute fracture or diastasis of the Lisfranc joint. No radiopaque foreign body. No sk in ulcers evident. No evidence of osteomyelitis. High plantar arch noted. IMPRESSION: No acute osseous findings in the foot. DATA REPOSITORY: RADIATION DOSE DELIVERED:
--- NOTE | 2023-11-23 16:45 | DI.RAD_ITS ---
Exam(s) XR FOOT LT COMPLETE EXAM: XR FOOT LT COMPLETE CLINICAL HISTORY: FOOT INFECTION. TECHNIQUE: 2D digital imaging was performed. COMPARISON: CR XR FOOT RT COMPLETE from 11/23/2023 FINDINGS: 3 views No evidence of fracture or diastasis of the Lisfranc joint. Hammertoe deformities of the toes noted. No osseous lesions nor erosions. No evidence of osteomyelitis. High arch noted. No degenerative changes. IMPRESSION: As above but no acute osseous findings. DATA REPOSITORY: RADIATION DOSE DELIVERED:
[2023-11-23 18:11] LABS: Absolute Basophil Count 0.11 10^3/uL (0.0-0.2); Absolute Eosinophil Count 0.14 10^3/uL (0.0-0.7); Absolute Lymphocyte Count 1.42 10^3/uL (1.2-3.4); Absolute Neutrophil Count 11.98 10^3/uL (1.2-6.7); Basophils % 0.7; Eosinophils % 0.9; HCT 41.7 % (40.0-50.0); HGB 13.7 g/dL (13.5-17.5); Lymphocytes % 9.4; MCH 28.8 pg (27.0-33.0); MCHC 32.9 % (32.0-36.0); MCV 88 fL (80-95); Monocytes % 7.9; Neutrophils % 79.1; Platelet Count 354 10^3/uL (130-400); RBC 4.75 10^6/uL (4.36-5.78); RDW 13.2 % (11.8-14.1); RDW-SD 42.5 fL; WBC 15.14 10^3/uL (4.4-10.8)
[2023-11-23] MEDS: VANCOMYCIN/WATER (PEG) 2 GM/400 ML BAG IVPB (18:14)
[2023-11-23 18:17] LABS: ESR 32 mm/hr (0-20)
[2023-11-23 18:37] LABS: ALT 21 U/L (16-63); AST 24 U/L (15-37); Albumin 3.4 g/dL (3.4-5.0); Alkaline Phosphatase 160 U/L (46-116); Anion Gap 8.1 mmol/L (3-11); BUN 6 mg/dL (7-18); Bilirubin, Total 0.4 mg/dL (0.2-1.0); C-Reactive Protein 0.86 mg/dL (<or=0.5); CO2 29.9 mmol/L (21.0-32.0); CREATININE 0.6 mg/dL (0.70-1.30); Calcium 8.9 mg/dL (8.5-10.1); Chloride 95 mmol/L (98-107); Glucose 93 mg/dL (74-106); Potassium 3.4 mmol/L (3.5-5.1); Sodium 133 mmol/L (136-145); TSH 3.55 uIU/mL (0.36-3.74); Total Protein 8.5 g/dL (6.4-8.2)
[2023-11-23 18:49] LABS: Hemoglobin A1C 5.9 % (<5.7)
[2023-11-23 18:50] LABS: Procalcitonin < 0.1 ng/mL
--- NOTE | 2023-11-23 19:01 | HPE_ITS ---
Date of service: 11/23/23 Time of Service: 19:01 Assessment and Plan Assessment and plan (1) Diabetic foot infection: Status: Acute Assessment and plan: Diabetic foot infection and cellulitis, cannot r/o osteo. Will continue Zosyn and Vanco for now and consult Podiatry for further management. Consider bone scan or MRI. 1. ID: as above 2. Chronic pain: will continue (confirmed) regimen of methadone and Oxycodone. Patient tells me the Methadone is scheduled, the Oxy prn 3. DM: random sugar today 93. Will check A1c and continue usual Metformin. 4. ADs: reviewed ADs, unsure, wants to speak with daughter. Will default to Full Code. History of Present Illness History of Present Illness Chief Complaint: foot infection Narrative: 73 male with chronic pain syndrome, apparent DM (on metformin) -- seen by Podiatry today for bilateral LE infection of unknown duration. Podiatry performed I/D abcess left foot and debridement wound right lower leg and sent to ER. In ER further findings of note for white count 15, ESR 32, CRP 0.86 and negativ foot films. Blood cxx obtained and patient iven Vanco and Zosyn. I was asked to evaluate for admission. Patient unable to tell me how long his LEs have been an issue and in fact asks to be discharged. After some discussion he appears to be willing to stay. I should say that he is somewhat unfocussed and it is not easy to maintain the thread of the conversation. Review of Systems Narrative: per HPI PFSH All Active Problems Cellulitis (Acute) Diabetic foot infection (Acute) Right calf pain (Acute) Ulcer of left foot with fat layer exposed (Acute) Ulcer of right lower extremity with fat layer exposed (Acute) Abscess of left foot including toes (Acute) Polyneuropathy (Acute) Major depression (Chronic) Glaucoma (Chronic) Babesiosis (Acute) Anxiety disorder (Acute) Cellulitis of right lower limb (Acute) Testicular hypofunction (Acute) Dementia (Chronic) PVD (peripheral vascular disease) (Chronic) Pain in right foot (Acute) Pain in left foot (Acute) Memory impairment (Acute) Diabetes mellitus (Chronic) GERD (gastroesophageal reflux disease) (Chronic) Hepatitis B core antibody positive (Acute) Nicotine dependence (Acute) Elevated blood sugar (Acute) Hepatitis C (Chronic) chronic Iron deficiency anemia (Acute) h/o babesiosis infection Narcotic dependence (Acute) Lumbar radiculopathy (Acute) Neuropathy (Acute) Anxiety (Chronic) Tobacco dependence (Acute) Chronic pain (Chronic) Reflex sympathetic dystrophy of the leg (Acute) Alcohol abuse (Chronic) Foot pain (Acute) Elevated liver function tests (Acute) Medical History Hx of traumatic brain injury Tachycardia persistent Aortic aneurysm Ataxia Leukocytoclastic vasculitis Gallbladder anomaly History of SD (myocardial infarction) Urinary frequency Hip pain, left Dental caries Dental infection Concussion with loss of consciousness Lyme disease Back pain Trauma Arthritis Cellulitis and abscess of foot Complicated grieving Insect bite Reaction, situational Dystonic tremor Dyspnea on exertion Fatigue due to old head injury Exposure to mercury Closed head injury Compression fracture of lumbar vertebra Chronic pain due to trauma DJD (degenerative joint disease) Depression Testosterone deficiency Traumatic amputation of finger Surgical History S/P cholecystectomy traumatic amputation Social History Smoking/Tobacco Use Status: Current every day Tobacco Type: cigarettes Smoking risk assessment performed?: Yes Alcohol Intake: current Alcohol Intake frequency: holidays/special occasions only Drug use: Daily Substance use type: marijuana current occupation: disabled What is your relationship status?: Panel score (0-1 are the most socially isolated patients): 0 Do you feel safe at home: Yes Do you feel safe in your relationship?: Yes Meds Allergies and Home Medications Allergies Allergy/AdvReac Type Severity Reaction Status Date / Time No Known Allergies Allergy Verified 11/23/23 16:40 Home Medications Medication Instructions Recorded Confirmed Type albuterol sulfate 90 mcg/actuation 2 puff inhalation Q6H PRN 01/23/19 11/23/23 History aerosol inhaler (ProAir HFA) latanoprost 0.005 % eye drops 1 drp ophthalmic (eye) QPM 01/23/19 11/23/23 History (Xalatan) metformin 500 mg tablet 500 mg PO BID 01/23/19 11/23/23 History methadone 10 mg tablet 60 mg PO BID 01/23/19 11/23/23 History multivitamin 1 tab PO DAILY 01/23/19 11/23/23 History nicotine (polacrilex) 4 mg buccal 4 mg mucous membrane Q4H 01/23/19 11/23/23 History lozenge (Nicorette) nicotine 14 mg/24 hr daily 1 patch transdermal DAILY 01/23/19 11/23/23 History transdermal patch (Nicoderm CQ) oxycodone 10 mg tablet 10 mg PO QID 01/23/19 11/23/23 History amitriptyline 10 mg tablet 10 mg PO QHS 06/25/22 11/23/23 History ascorbic acid (vitamin C) 1,000 mg 1 g PO Q6H 08/17/23 11/23/23 History capsule burdock root 500 mg capsule mg PO 08/17/23 11/23/23 History cholecalciferol (vitamin D3) 125 125 mcg PO .3days/week 08/17/23 11/23/23 History mcg (5,000 unit) capsule dandelion root 525 mg capsule 525 mg PO DAILY AM 08/17/23 11/23/23 History gabapentin 100 mg capsule 100 mg PO BID PRN 08/17/23 11/23/23 History magnesium oxide 400 mg PO DAILY 08/17/23 11/23/23 History milk thistle 150 mg capsule 150 mg PO BID 08/17/23 11/23/23 History budesonide-formoterol HFA 80 2 puff inhalation BID 11/01/23 11/23/23 History mcg-4.5 mcg/actuation aerosol inhaler (Symbicort) furosemide 20 mg tablet 20 mg PO DAILY 11/01/23 11/23/23 History naloxone 4 mg/actuation nasal spray 4 mg intranasal Q2M 11/01/23 11/23/23 History pregabalin 50 mg capsule 100 mg PO QHS 11/23/23 11/23/23 History Exam Narrative Exam Narrative: 153/72, 101, 36.9, 22, 96% RA. Ill-kepmt and appears chronically ill. HEENT atraumatic; neck supple; lungs clear; heart RRR; abdomen soft and NT; extremities: draining wound left second interspace, with extensive ulcer ovr great oe and pretibial uler on right. Erythema and warmth extending mid-snell bilaterally. Neuro: Ox2.5 (knows year, does not know president), as above he does not track conversation well; moves all 4s Results Labs 11/23/23 17:55 11/23/23 17:55 Labs: Laboratory Results - last 24 hr 11/23/23 11/23/23 11/23/23 17:55 17:55 17:55 WBC 15.14 H RBC 4.75 Hgb 13.7 Hct 41.7 MCV 88 MCH 28.8 MCHC 32.9 RDW 13.2 Plt Count 354 MPV 8.0 Immature Gran % 2.0 Neutrophils % 79.1 Lymphocytes % 9.4 Monocytes % 7.9 Eosinophils % 0.9 Basophils % 0.7 Nucleated RBC % 0.0 Absolute Neutrophils 11.98 H Absolute Lymphocytes 1.42 Absolute Monocytes 1.20 H Absolute Eosinophils 0.14 Absolute Basophils 0.11 ESR 32 H Sodium 133 L Potassium 3.4 L Chloride 95 L Carbon Dioxide 29.9 Anion Gap 8.1 BUN 6 L Creatinine 0.6 L Est GFR (CKD-EPI 2020) 101.30 Glucose 93 Hemoglobin A1c 5.9 H Calcium 8.9 Total Bilirubin 0.4 AST 24 ALT 21 Alkaline Phosphatase 160 H C-Reactive Protein Cancelled 0.86 H Total Protein 8.5 H Albumin 3.4 Procalcitonin < 0.1 TSH 3.55 Cancelled Last Vital Signs Temp 36.9 C 11/23/23 16:42 Pulse 101 H 11/23/23 17:46 Resp 22 11/23/23 17:50 BP 153/72 H 11/23/23 17:46 Pulse Ox 96 11/23/23 18:00 Time Spent Time spent with Patient: 55-74 minutes Time was spent: preparing to see the patient(eg.review tests), obtaining and/or reviewing separately otained hiistory, ordering medications,tests, procedures, referring, communicating with other health healthcare network pricing consultant and indepentently interpreting results
--- NOTE | 2023-11-23 20:59 | W.ED.GENAD ---
HPI General Date/Time Provider Initiated Documentation: 11/23/23 16:47. Limitations to Documentation: no limitations. Information obtained by: patient. HPI Narrative: 73-year-old gentleman with multiple medical comorbidities including dementia, PVD, diabetes, polysubstance use presents for evaluation from podiatry clinic. He was evaluated there for foot issues. Commercial Artist Lettering sent the patient to the emergency department with concern for severe infection in his feet. Patient is unable to fully provide information regarding when the symptoms started. He reports that he does not have a history of diabetes. He states that he only occasionally drinks alcohol like when he goes to baseball games. He does not report any fevers or drainage from his feet. Related Data Home Medications Medication Instructions Recorded Confirmed albuterol sulfate 90 mcg/actuation 2 puff inhalation Q6H PRN 01/23/19 11/23/23 aerosol inhaler (ProAir HFA) latanoprost 0.005 % eye drops 1 drp ophthalmic (eye) QPM 01/23/19 11/23/23 (Xalatan) metformin 500 mg tablet 500 mg PO BID 01/23/19 11/23/23 methadone 10 mg tablet 60 mg PO BID 01/23/19 11/23/23 multivitamin 1 tab PO DAILY 01/23/19 11/23/23 nicotine (polacrilex) 4 mg buccal 4 mg mucous membrane Q4H 01/23/19 11/23/23 lozenge (Nicorette) nicotine 14 mg/24 hr daily 1 patch transdermal DAILY 01/23/19 11/23/23 transdermal patch (Nicoderm CQ) oxycodone 10 mg tablet 10 mg PO QID 01/23/19 11/23/23 amitriptyline 10 mg tablet 10 mg PO QHS 06/25/22 11/23/23 ascorbic acid (vitamin C) 1,000 mg 1 g PO Q6H 08/17/23 11/23/23 capsule burdock root 500 mg capsule mg PO 08/17/23 11/23/23 cholecalciferol (vitamin D3) 125 125 mcg PO .3days/week 08/17/23 11/23/23 mcg (5,000 unit) capsule dandelion root 525 mg capsule 525 mg PO DAILY AM 08/17/23 11/23/23 gabapentin 100 mg capsule 100 mg PO BID PRN 08/17/23 11/23/23 magnesium oxide 400 mg PO DAILY 08/17/23 11/23/23 milk thistle 150 mg capsule 150 mg PO BID 08/17/23 11/23/23 budesonide-formoterol HFA 80 2 puff inhalation BID 11/01/23 11/23/23 mcg-4.5 mcg/actuation aerosol inhaler (Symbicort) furosemide 20 mg tablet 20 mg PO DAILY 11/01/23 11/23/23 naloxone 4 mg/actuation nasal spray 4 mg intranasal Q2M 11/01/23 11/23/23 pregabalin 50 mg capsule 100 mg PO QHS 11/23/23 11/23/23 Allergies Allergy/AdvReac Type Severity Reaction Status Date / Time No Known Allergies Allergy Verified 11/23/23 16:40 General Stated Complaint: Cellulitis PRIMO: 3 Exam Narrative Exam Narrative: Review of Systems: All systems reviewed & are unremarkable except as noted in HPI and below Well-developed, no acute distress, generally disheveled NCAT PERRL, normal conjunctiva RRR Unlabored respiratory effort Nondistended abdomen , umbilical hernia Bilateral lower extremities with cellulitis, warm to touch, erythematous Left foot with ulceration particularly around the great toe great toe is swollen tender, no appreciable crepitus, there is some discoloration of the distal foot Disorganized and seems slightly confused Course Vital Signs Vital signs: Vital Signs Temperature 36.9 C 11/23/23 16:42 Pulse 112 H 11/23/23 16:42 Respiratory Rate 22 11/23/23 16:42 Pulse Oximetry 100 11/23/23 16:42 Temperature 36.9 C 11/23/23 16:42 Temperature Source Temporal Artery Scan 11/23/23 16:42 Pulse 101 H 11/23/23 17:46 Pulse 98 H 11/23/23 17:50 Respiratory Rate 22 11/23/23 17:50 Blood Pressure 153/72 H 11/23/23 17:46 Blood Pressure Mean 96 11/23/23 17:46 Blood Pressure Position Sitting 11/23/23 16:42 Pulse Oximetry 96 11/23/23 18:00 Oxygen Delivery Method Room Air 11/23/23 16:42 Oxygen Flow Rate 0 11/23/23 16:42 Pain Level 7 11/23/23 16:42 Lab/Test Results Lab/Test Results: 11/23/23 18:30 Blood Blood Culture - Pending 11/23/23 17:55 Blood Blood Culture - Pending Laboratory Tests Range/Units 11/23/23 11/23/23 11/23/23 17:55 17:55 17:55 WBC (4.4-10.8) 10^3/uL 15.14 H RBC (4.36-5.78) 10^6/uL 4.75 Hgb (13.5-17.5) g/dL 13.7 Hct (40.0-50.0) % 41.7 MCV (80-95) fL 88 MCH (27.0-33.0) pg 28.8 MCHC (32.0-36.0) % 32.9 RDW (11.8-14.1) % 13.2 Plt Count (130-400) 10^3/uL 354 MPV (8.0-11.0) fL 8.0 Immature Gran % 2.0 Neutrophils % 79.1 Lymphocytes % 9.4 Monocytes % 7.9 Eosinophils % 0.9 Basophils % 0.7 Nucleated RBC % (0.0-0.3) % 0.0 Absolute Neutrophils (1.2-6.7) 10^3/uL 11.98 H Absolute Lymphocytes (1.2-3.4) 10^3/uL 1.42 Absolute Monocytes (0.1-0.8) 10^3/uL 1.20 H Absolute Eosinophils (0.0-0.7) 10^3/uL 0.14 Absolute Basophils (0.0-0.2) 10^3/uL 0.11 ESR (0-20) mm/hr 32 H Sodium (136-145) mmol/L 133 L Potassium (3.5-5.1) mmol/L 3.4 L Chloride (98-107) mmol/L 95 L Carbon Dioxide (21.0-32.0) mmol/L 29.9 Anion Gap (3-11) mmol/L 8.1 BUN (7-18) mg/dL 6 L Creatinine (0.70-1.30) mg/dL 0.6 L Est GFR (CKD-EPI 2020) (mL/min/1.73m2) 101.30 Glucose (74-106) mg/dL 93 Hemoglobin A1c (<5.7) % 5.9 H Calcium (8.5-10.1) mg/dL 8.9 Total Bilirubin (0.2-1.0) mg/dL 0.4 AST (15-37) U/L 24 ALT (16-63) U/L 21 Alkaline Phosphatase (46-116) U/L 160 H C-Reactive Protein Cancelled 0.86 H Total Protein (6.4-8.2) g/dL 8.5 H Albumin (3.4-5.0) g/dL 3.4 Procalcitonin ng/mL < 0.1 TSH (0.36-3.74) uIU/mL 3.55 Cancelled Medical Decision Making Emergent evaluation of bilateral leg infection. Patient is afebrile, but noted to be tachycardic. He is not a reliable historian. He denies history of diabetes, but his medical history list seems to indicate otherwise. I also reviewed the patient's [employer] and noted large doses of narcotics and methadone are being prescribed to him. I think this is all contributing to his altered mental status. Concern for bilateral cellulitis versus osteomyelitis. Smell is concerning for Pseudomonas. Will start empiric antibiotic therapy. Blood cultures have been sent. X-rays obtained to evaluate for osseous change versus gas in the tissue. X-rays reviewed and independently interpreted by me and there does not appear to be any acute change. However an MRI would likely be beneficial for this patient to rule out osteomyelitis. Lab work reviewed. He does have a leukocytosis. No significant anemia. Electrolytes not significantly deranged. His A1c is. Fairly well-controlled at 5.9% his CRP and ESR slightly elevated and his procalcitonin is negative. Given the patient significant infection, will admit to the hospital for further IV antibiotics and wound care. Medical Records Medical records reviewed: Yes I reviewed the patient's medical records. Lab Data Lab results reviewed: Yes I reviewed the patient's lab results. Quality:SDAL Health Related Social Needs: No Data to Display PFSH All Active Problems Cellulitis (Acute) Diabetic foot infection (Acute) Right calf pain (Acute) Ulcer of left foot with fat layer exposed (Acute) Ulcer of right lower extremity with fat layer exposed (Acute) Abscess of left foot including toes (Acute) Polyneuropathy (Acute) Major depression (Chronic) Glaucoma (Chronic) Babesiosis (Acute) Anxiety disorder (Acute) Cellulitis of right lower limb (Acute) Testicular hypofunction (Acute) Dementia (Chronic) PVD (peripheral vascular disease) (Chronic) Pain in right foot (Acute) Pain in left foot (Acute) Memory impairment (Acute) Diabetes mellitus (Chronic) GERD (gastroesophageal reflux disease) (Chronic) Hepatitis B core antibody positive (Acute) Nicotine dependence (Acute) Elevated blood sugar (Acute) Hepatitis C (Chronic) chronic Iron deficiency anemia (Acute) h/o babesiosis infection Narcotic dependence (Acute) Lumbar radiculopathy (Acute) Neuropathy (Acute) Anxiety (Chronic) Tobacco dependence (Acute) Chronic pain (Chronic) Reflex sympathetic dystrophy of the leg (Acute) Alcohol abuse (Chronic) Foot pain (Acute) Elevated liver function tests (Acute) Medical History Hx of traumatic brain injury Tachycardia persistent Aortic aneurysm Ataxia Leukocytoclastic vasculitis Gallbladder anomaly History of [place] (myocardial infarction) Urinary frequency Hip pain, left Dental caries Dental infection Concussion with loss of consciousness Lyme disease Back pain Trauma Arthritis Cellulitis and abscess of foot Complicated grieving Insect bite Reaction, situational Dystonic tremor Dyspnea on exertion Fatigue due to old head injury Exposure to mercury Closed head injury Compression fracture of lumbar vertebra Chronic pain due to trauma DJD (degenerative joint disease) Depression Testosterone deficiency Traumatic amputation of finger Surgical History S/P cholecystectomy traumatic amputation Social History Smoking/Tobacco Use Status: Current every day Tobacco Type: cigarettes Smoking risk assessment performed?: Yes Alcohol Intake: current Alcohol Intake frequency: holidays/special occasions only Drug use: Daily Substance use type: marijuana current occupation: disabled What is your relationship status?: Panel score (0-1 are the most socially isolated patients): 0 Do you feel safe at home: Yes Do you feel safe in your relationship?: Yes Discharge Plan Disposition Patient Disposition: Admit to [facility] Discharge Details Clinical Impression: Diabetic foot infection, Cellulitis Admit Date/Time: 11/23/23 19:21 Admit Provider: Conor Smiley Attending Provider: Conor Smiley Primary Care Provider: Ena Boo V ED Provider: Santa Lopez Discharge Data Discharge Date/Time-TO BE ENTERED AT DEPARTURE: 11/23/23 20:31
[2023-11-23] MEDS: Normal Saline Flush 10 ML SYR IVP (22:29)
[2023-11-23] MEDS: Latanoprost 0.005% 2.5 ML BTL OP (22:36)
[2023-11-23] MEDS: PIPERACILLIN/TAZO 3.375 GM in Normal Saline 50 ML IVPB (23:19)
[2023-11-24] MEDS: oxyCODONE 10 MG TAB PO ×3 (00:13→08:33)
[2023-11-24] MEDS: Methadone 10 MG TAB 60 MG PO (00:15)
[2023-11-24 02:19] LABS: Lab Add On Test DONE
[2023-11-24] MEDS: Normal Saline Flush 10 ML SYR IVP ×3 (06:36→15:01)
[2023-11-24] MEDS: PIPERACILLIN/TAZO 3.375 GM in Normal Saline 50 ML IVPB ×2 (06:36→13:00)
[2023-11-24 07:35] LABS: Vancomycin, Random 9.9 ug/mL
[2023-11-24] MEDS: VANCOMYCIN/WATER (PEG) 1.5 GM/300 ML BAG IVPB (08:34)
[2023-11-24 10:04] LABS: Abs Immature Grans 0.35 10^3/uL (0.0-0.06); Absolute Basophil Count 0.09 10^3/uL (0.0-0.2); Absolute Eosinophil Count 0.24 10^3/uL (0.0-0.7); Absolute Neutrophil Count 6.53 10^3/uL (1.2-6.7); Basophils % 0.9; Eosinophils % 2.4; HCT 41.9 % (40.0-50.0); HGB 13.8 g/dL (13.5-17.5); Immature Grans % 3.5; Lymphocytes % 16.1; MCH 29.4 pg (27.0-33.0); MCHC 32.9 % (32.0-36.0); MCV 89 fL (80-95); MPV 8.5 fL (8.0-11.0); Monocytes % 11.1; Platelet Count 352 10^3/uL (130-400); RDW 13.3 % (11.8-14.1); RDW-SD 43.3 fL; WBC 9.91 10^3/uL (4.4-10.8)
[2023-11-24] MEDS: Methadone 10 MG TAB 40 MG PO (10:10)
[2023-11-24 10:13] LABS: BUN 6 mg/dL (7-18); C-Reactive Protein 1.33 mg/dL (<or=0.5); CREATININE 0.6 mg/dL (0.70-1.30); Calcium 9.1 mg/dL (8.5-10.1); Chloride 98 mmol/L (98-107); Glucose 95 mg/dL (74-106); Magnesium 2.2 mg/dL (1.8-2.4); Potassium 4.4 mmol/L (3.5-5.1); Sodium 134 mmol/L (136-145)
--- NOTE | 2023-11-24 12:36 | W.PODCONSULT ---
Date of service: 11/24/23 Time of Service: 08:15 Assessment and Plan Assessment and plan (1) Cellulitis: Status: Acute (2) Diabetic foot infection: Status: Acute (3) Right calf pain: Status: Acute (4) Ulcer of left foot with fat layer exposed: Status: Acute (5) Ulcer of right lower extremity with fat layer exposed: Status: Acute (6) Abscess of left foot including toes: Status: Acute (7) Polyneuropathy: Status: Acute (8) Cellulitis of right lower limb: Status: Acute (9) Diabetes mellitus: Status: Chronic (10) Memory impairment: Status: Acute (11) Hepatitis B core antibody positive: Status: Acute (12) Nicotine dependence: Status: Acute (13) Alcohol abuse: Status: Chronic (14) Tobacco dependence: Status: Acute (15) Hepatitis C: Status: Chronic (16) Narcotic dependence: Status: Acute Assessment and plan: This is a 73-year-old male patient with multiple comorbidities seen bedside for bilateral lower extremity painful ulcers with cellulitis. Patient was seen in office yesterday, 11/23/2023, noted to have an abscess to the left first metatarsophalangeal joint at the interspace level which was drained and debrided in office. Patient was noted to have extensive cellulitis bilateral lower extremity. He does have severe pain to the right leg ulcer located just above the medial malleolus. No drainage noted from the right leg wound however. Patient was advised to present to the ER for basic labs possible admission and IV antibiotics. Patient reports continued pain bedside today. Chart was reviewed. Patient does have an elevated white count. I recommend continuing antibiotics. I recommend MRI bilateral lower extremity to evaluate for an abscess underlying. If there is an abscess, he will require OR debridement. Patient has nonpalpable pulses and delayed wound healing. I recommend CTA, if there are blockages, I would recommend consultation with [facility] vascular. Will update debridement recommendations following CTA as performing a debridement at this time with low vascularity is not recommended. Dressings were applied with 4 x 4, Kerlix, Dave wrap bilaterally. Nursing to continue dressing changes with antibiotic ointment, 4 x 4, Kerlix, Dave wrap bilateral lower extremity. Protected weightbearing to the left lower extremity with a surgical shoe. Will continue to follow History of Present Illness History of Present Illness Chief Complaint: Cellulitis, bilateral lower extremity ulcers Narrative: Patient is seen bedside resting comfortably. Patient was seen in office on 11/23/2023 for bilateral lower extremity wounds. Patient does not recall how long the wounds have been present. He reports pain to bilateral lower extremity ulcerations. Denies fevers nausea vomiting chills or diarrhea. Today, he reports pain and states he was doing better at home. No other new pedal complaints Review of Systems Cardiovascular Comments: Nonpalpable pulses bilaterally. Bilateral lower extremity edema. Musculoskeletal Comments: Pain in right leg Neurologic Comments: Light touch intact lower extremity PFSH All Active Problems Cellulitis (Acute) Diabetic foot infection (Acute) Right calf pain (Acute) Ulcer of left foot with fat layer exposed (Acute) Ulcer of right lower extremity with fat layer exposed (Acute) Abscess of left foot including toes (Acute) Polyneuropathy (Acute) Major depression (Chronic) Anxiety disorder (Acute) Cellulitis of right lower limb (Acute) Testicular hypofunction (Acute) Dementia (Chronic) Babesiosis (Acute) Glaucoma (Chronic) PVD (peripheral vascular disease) (Chronic) Pain in right foot (Acute) Pain in left foot (Acute) Memory impairment (Acute) Diabetes mellitus (Chronic) GERD (gastroesophageal reflux disease) (Chronic) Hepatitis B core antibody positive (Acute) Nicotine dependence (Acute) Reflex sympathetic dystrophy of the leg (Acute) Alcohol abuse (Chronic) Foot pain (Acute) Elevated liver function tests (Acute) Chronic pain (Chronic) Tobacco dependence (Acute) Anxiety (Chronic) Neuropathy (Acute) Elevated blood sugar (Acute) Lumbar radiculopathy (Acute) Hepatitis C (Chronic) chronic Iron deficiency anemia (Acute) h/o babesiosis infection Narcotic dependence (Acute) Medical History Hx of traumatic brain injury Tachycardia persistent Aortic aneurysm Ataxia Leukocytoclastic vasculitis Gallbladder anomaly History of [place] (myocardial infarction) Concussion with loss of consciousness Urinary frequency Hip pain, left Dental caries Dental infection Lyme disease Back pain Trauma Arthritis Cellulitis and abscess of foot Complicated grieving Insect bite Reaction, situational Dystonic tremor Dyspnea on exertion Fatigue due to old head injury Exposure to mercury Closed head injury Compression fracture of lumbar vertebra Chronic pain due to trauma DJD (degenerative joint disease) Depression Testosterone deficiency Traumatic amputation of finger Surgical History S/P cholecystectomy traumatic amputation Social History Smoking/Tobacco Use Status: Current every day Tobacco Type: cigarettes Smoking risk assessment performed?: Yes Alcohol Intake: current Alcohol Intake frequency: holidays/special occasions only Drug use: Daily Substance use type: marijuana Housing: other current occupation: disabled What is your relationship status?: Panel score (0-1 are the most socially isolated patients): 0 Do you feel safe at home: Yes Do you feel safe in your relationship?: Yes Exam Extrem Other: Bilateral lower extremity physical exam: Cardio: Pedal pulses are 0/4 bilateral lower extremity. There is mild edema noted bilaterally. Capillary refill time delayed to all digits bilaterally. Skin temperature is cool to warm bilaterally. Hair growth is noted to be absent bilaterally. MSK: Tenderness to palpation noted to the right leg ulceration medially. There is no pain noted to the left first MPJ with range of motion. Skin: Full-thickness ulceration noted to the medial aspect of the left first metatarsophalangeal joint measuring 3.7 x 1.3 x 0.3 cm at the base which is 100% necrotic/fibrotic the borders are macerated there is periwound erythema edema no fluctuance no crepitus no bogginess. Full-thickness ulceration noted to the left first interspace measuring 4 cm x 1.4 cm x 0.4 cm deep there is periwound erythema edema drainage not noted today no fluctuance no crepitus. Full-thickness ulceration noted to the medial aspect of the right leg measuring 4.5 x 2.0 x 0.3 cm with periwound erythema tenderness to palpation and edema. Superior to this ulcer there is ulceration with slough noted to the anterior aspect of the right leg measuring 4.0 x 4.0 cm with periwound erythema edema tenderness to palpation. Results Last Vital Signs Temp 98.4 F 11/23/23 16:42 Pulse 92 H 11/23/23 20:44 Resp 20 11/23/23 20:44 BP 121/73 11/23/23 20:44 Pulse Ox 96 11/23/23 20:44 Labs 11/24/23 05:40 11/24/23 05:40 Labs: Laboratory Results - last 24 hr 11/23/23 11/23/23 11/23/23 17:55 17:55 17:55 WBC 15.14 H RBC 4.75 Hgb 13.7 Hct 41.7 MCV 88 MCH 28.8 MCHC 32.9 RDW 13.2 Plt Count 354 MPV 8.0 Immature Gran % 2.0 Neutrophils % 79.1 Lymphocytes % 9.4 Monocytes % 7.9 Eosinophils % 0.9 Basophils % 0.7 Nucleated RBC % 0.0 Absolute Neutrophils 11.98 H Absolute Lymphocytes 1.42 Absolute Monocytes 1.20 H Absolute Eosinophils 0.14 Absolute Basophils 0.11 ESR 32 H Sodium 133 L Potassium 3.4 L Chloride 95 L Carbon Dioxide 29.9 Anion Gap 8.1 BUN 6 L Creatinine 0.6 L Est GFR (CKD-EPI 2020) 101.30 Glucose 93 Hemoglobin A1c 5.9 H Calcium 8.9 Magnesium Total Bilirubin 0.4 AST 24 ALT 21 Alkaline Phosphatase 160 H C-Reactive Protein Cancelled 0.86 H Total Protein 8.5 H Albumin 3.4 Procalcitonin < 0.1 TSH 3.55 Cancelled Random Vancomycin Add-On Test Request DONE 11/24/23 05:40 WBC 9.91 RBC 4.70 Hgb 13.8 Hct 41.9 MCV 89 MCH 29.4 MCHC 32.9 RDW 13.3 Plt Count 352 MPV 8.5 Immature Gran % 3.5 Neutrophils % 66.0 Lymphocytes % 16.1 Monocytes % 11.1 Eosinophils % 2.4 Basophils % 0.9 Nucleated RBC % 0.0 Absolute Neutrophils 6.53 Absolute Lymphocytes 1.60 Absolute Monocytes 1.10 H Absolute Eosinophils 0.24 Absolute Basophils 0.09 ESR Sodium 134 L Potassium 4.4 D Chloride 98 Carbon Dioxide 24.0 Anion Gap 12.0 H BUN 6 L Creatinine 0.6 L Est GFR (CKD-EPI 2020) 101.30 Glucose 95 Hemoglobin A1c Calcium 9.1 Magnesium 2.2 Total Bilirubin AST ALT Alkaline Phosphatase C-Reactive Protein 1.33 H Total Protein Albumin Procalcitonin TSH Random Vancomycin 9.9 Add-On Test Request Imaging Imaging Studies: Admission Date: 11/23/23 : 1950 Age: 73 Exam(s) XR FOOT LT COMPLETE EXAM: XR FOOT LT COMPLETE CLINICAL HISTORY: FOOT INFECTION. TECHNIQUE: 2D digital imaging was performed. COMPARISON: CR XR FOOT RT COMPLETE from 11/23/2023 FINDINGS: 3 views No evidence of fracture or diastasis of the Lisfranc joint. Hammertoe deformities of the toes noted. No osseous lesions nor erosions. No evidence of osteomyelitis. High arch noted. No degenerative changes. IMPRESSION: As above but no acute osseous findings.
--- NOTE | 2023-11-24 13:53 | PGE_ITS ---
Date of Service Date of service: 11/24/23 Time of Service: 13:53 Assessment and Plan Assessment and plan (1) Diabetic foot infection: Status: Acute Assessment and plan: Diabetic foot infection and cellulitis, cannot r/o osteo. Continue Zosyn and Vanco Podiatry consulted (2) Dementia: Status: Chronic (3) PVD (peripheral vascular disease): Status: Chronic (4) Diabetes mellitus: Status: Chronic (5) GERD (gastroesophageal reflux disease): Status: Chronic (6) Hepatitis C: Status: Chronic (7) Narcotic dependence: Status: Acute (8) Chronic pain: Status: Chronic Assessment and plan: continue methadone - has been verified (9) Alcohol abuse: Status: Chronic Subjective Subjective Patient reports: no new complaints, tolerating a regular diet, voiding w/o difficulty, bowel movement and afebrile; denies diarrhea, nausea, vomiting or shortness of breath Exam Const General: cooperative and no acute distress HENMT Head: normal to inspection General nose exam: external nose normal Teeth and gingiva: caries, poor dentition (throughout) and other (multiple missing teeth throughout) Eyes General: appearance normal, both eyes and all related structures Neck Neck: normal visual inspection Resp Effort & Inspection: normal respiratory effort and able to speak in complete sentences Cardio Rate: regular rate Neuro General: patient alert and patient awake Motor: muscle tone normal throughout Extrem General: normal to inspection and full ROM Psych Appearance: grossly normal Affect: normal affect Objective Last Vital Signs Temp 36.9 C 11/23/23 16:42 Pulse 92 H 11/23/23 20:44 Resp 20 11/23/23 20:44 BP 121/73 11/23/23 20:44 Pulse Ox 96 11/23/23 20:44 Laboratory Results - last 24 hr 11/23/23 11/23/23 11/23/23 17:55 17:55 17:55 WBC 15.14 H RBC 4.75 Hgb 13.7 Hct 41.7 MCV 88 MCH 28.8 MCHC 32.9 RDW 13.2 Plt Count 354 MPV 8.0 Immature Gran % 2.0 Neutrophils % 79.1 Lymphocytes % 9.4 Monocytes % 7.9 Eosinophils % 0.9 Basophils % 0.7 Nucleated RBC % 0.0 Absolute Neutrophils 11.98 H Absolute Lymphocytes 1.42 Absolute Monocytes 1.20 H Absolute Eosinophils 0.14 Absolute Basophils 0.11 ESR 32 H Sodium 133 L Potassium 3.4 L Chloride 95 L Carbon Dioxide 29.9 Anion Gap 8.1 BUN 6 L Creatinine 0.6 L Est GFR (CKD-EPI 2020) 101.30 Glucose 93 Hemoglobin A1c 5.9 H Calcium 8.9 Magnesium Total Bilirubin 0.4 AST 24 ALT 21 Alkaline Phosphatase 160 H C-Reactive Protein Cancelled 0.86 H Total Protein 8.5 H Albumin 3.4 Procalcitonin < 0.1 TSH 3.55 Cancelled Random Vancomycin Add-On Test Request DONE 11/24/23 05:40 WBC 9.91 RBC 4.70 Hgb 13.8 Hct 41.9 MCV 89 MCH 29.4 MCHC 32.9 RDW 13.3 Plt Count 352 MPV 8.5 Immature Gran % 3.5 Neutrophils % 66.0 Lymphocytes % 16.1 Monocytes % 11.1 Eosinophils % 2.4 Basophils % 0.9 Nucleated RBC % 0.0 Absolute Neutrophils 6.53 Absolute Lymphocytes 1.60 Absolute Monocytes 1.10 H Absolute Eosinophils 0.24 Absolute Basophils 0.09 ESR Sodium 134 L Potassium 4.4 D Chloride 98 Carbon Dioxide 24.0 Anion Gap 12.0 H BUN 6 L Creatinine 0.6 L Est GFR (CKD-EPI 2020) 101.30 Glucose 95 Hemoglobin A1c Calcium 9.1 Magnesium 2.2 Total Bilirubin AST ALT Alkaline Phosphatase C-Reactive Protein 1.33 H Total Protein Albumin Procalcitonin TSH Random Vancomycin 9.9 Add-On Test Request Time Spent with Patient Time Spent with Patient: 35-49 minutes Time was spent: preparing to see the patient(eg.review tests), ordering medications,tests, procedures, referring, communicating with other health group care worker, indepentently interpreting results, counseling the patient and care coordination
--- NOTE | 2023-11-24 15:24 | PHACLINREV_ITS ---
Pharmacy Admission Review Admission Clinical Review Admission Pharmacy Review: (Updated 11/23/23 @ 18:44 by Santa Lopez MD) Cellulitis (Acute) Diabetic foot infection (Acute) Right calf pain (Acute) Ulcer of left foot with fat layer exposed (Acute) Ulcer of right lower extremity with fat layer exposed (Acute) Abscess of left foot including toes (Acute) Polyneuropathy (Acute) Cellulitis of right lower limb (Acute) Memory impairment (Acute) Hepatitis B core antibody positive (Acute) Nicotine dependence (Acute) Narcotic dependence (Acute) Tobacco dependence (Acute) No Known Allergies Allergy (Verified 11/23/23 16:40) Resuscitation Status Full Code Height 6 ft Weight 84.368 kg Pharmacy Admission Review Renal Dosing Renal Dosing: BUN 6 mg/dL (7-18) L 11/24/23 05:40 Creatinine 0.6 mg/dL (0.70-1.30) L 11/24/23 05:40 Medications needing adjustments: Reviewed (CrCl 77.34 mL/min) Anticoagulation Anticoagulation: Hgb 13.8 g/dL (13.5-17.5) 11/24/23 05:40 Hct 41.9 % (40.0-50.0) 11/24/23 05:40 Plt Count 352 10^3/uL (130-400) 11/24/23 05:40 Creatinine 0.6 mg/dL (0.70-1.30) L 11/24/23 05:40 DVT Prophylaxis: Intervened (None at this time, reached out to provider who is aware (stated he may be going into surgery)) Opiate Usage Evaluate Pain Scale/Pains Meds: Reviewed (PRN hydromophrone and oxycodone, YI methadone) Scheduled Bowel Reg ordered if on Opiates?: No Relevant Labs Relevant Labs: ESR 32 mm/hr (0-20) H 11/23/23 17:55 Sodium 134 mmol/L (136-145) L 11/24/23 05:40 Potassium 4.4 mmol/L (3.5-5.1) D 11/24/23 05:40 Chloride 98 mmol/L (98-107) 11/24/23 05:40 Magnesium 2.2 mg/dL (1.8-2.4) 11/24/23 05:40 C-Reactive Protein 1.33 mg/dL (<or=0.5) H 11/24/23 05:40 Electrolytes, C-Reactive P, ESR: Reviewed (Na 134) DM Control DM Control: Glucose 95 mg/dL (74-106) 11/24/23 05:40 Hemoglobin A1c 5.9 % (<5.7) H 11/23/23 17:55 DM Control: Reviewed Insulin Dosing, Diabetic Medication: Has order for metformin Cardiac Review BP, HR, EF%: Reviewed (No vital signs in patients chart for today) QTc Review QTc: Reviewed (No EKG in patients file) IV to PO Switch IV Medications: Reviewed Home Meds Home Med List reviewed: Intervened Relevent Home Meds Not ordered & why?: On home med list but not ordered: albuterol (has note that patient is not taking), amitriptyline (has note that patient is not taking), vitamin D3, ascorbic acid, multivitamin, Narcan Oxycodone: order was for 1 tablet (10mg) QID PRN but home does is 10-20mg q4-6h PRN. Reached out to provider who asked that I change the order to his home dosing Methadone: Confirmed dose with [employer] and updated patients home med list Current Meds Current Medication Order Review: Reviewed Comments: Per nursing security shift supervisor synopsis patient refusing meds other than oxycodone, methadone and antibiotics Pharmacy Antibiotic Review Relevant Labs: Relevant Labs 11/24/23 11/23/23 11/23/23 05:40 17:55 17:55 C-Reactive Protein 1.33 H 0.86 H Cancelled Procalcitonin < 0.1 Pharmacy Antibiotic Activity: C/S review and Reviewed, no change Comments: Currently on Zosyn and Vancomycin 1500mg q12h with predicted AUC of 592 and trough of 18. Vancomycin trough scheduled for 1900 today.
--- NOTE | 2023-11-24 18:11 | PDOC.CMIN ---
Date of service: 11/24/23 Time of Service: 18:11 Care Management Initial Assmt Initial Assessment REASON FOR HOSPITALIZATION:: Foot infection, extensive cellulitis bilateral lower extremity PREVIOUS FUNCTIONAL STATUS/SOCIAL/FAMILY SUPPORTS:: Resides alone in [place], daughter Riri resides in [place], [place] and visits weekly. Hx of leaving AMA, non-compliance. CURRENT FUNCTIONAL STATUS:: Dean remains in pain, and continues work up of cellulitis and foot wound, CM following. ADVANCE DIRECTIVES:: None on file. Has patient been provided with info about the portal/API?: No Did the patient sign up for the portal?: No CODE STATUS:: Full Code INSURANCE COVERAGE / FINANCIAL ISSUES:: [employer] CURRENT HOME/COMMUNITY SERVICES/EQUIPMENT:: Home health PRIMARY CARE PHYSICIAN:: Ena Boo POTENTIAL DISCHARGE NEEDS:: Discuss increased services, resume home health PATIENT/FAMILY EDUCATION NEEDS:: Review discharge instructions, discuss Ask Me Three. ANTICIPATED BARRIERS TO DISCHARGE:: Culture, sensitivities; awaiting treatment planning. TRANSPORTATION:: Via private vehicle with family. PLAN:: Left first metatarsophalangeal joint was drained and debrided at Podiatry yesterday. Awaiting further workup to inform treatment planning. CM following. PFSH All Active Problems Cellulitis (Acute) Diabetic foot infection (Acute) Right calf pain (Acute) Ulcer of left foot with fat layer exposed (Acute) Ulcer of right lower extremity with fat layer exposed (Acute) Abscess of left foot including toes (Acute) Polyneuropathy (Acute) Major depression (Chronic) Glaucoma (Chronic) Babesiosis (Acute) Anxiety disorder (Acute) Cellulitis of right lower limb (Acute) Testicular hypofunction (Acute) Dementia (Chronic) PVD (peripheral vascular disease) (Chronic) Pain in right foot (Acute) Pain in left foot (Acute) Memory impairment (Acute) Diabetes mellitus (Chronic) GERD (gastroesophageal reflux disease) (Chronic) Hepatitis B core antibody positive (Acute) Nicotine dependence (Acute) Elevated blood sugar (Acute) Hepatitis C (Chronic) chronic Iron deficiency anemia (Acute) h/o babesiosis infection Narcotic dependence (Acute) Lumbar radiculopathy (Acute) Neuropathy (Acute) Anxiety (Chronic) Tobacco dependence (Acute) Chronic pain (Chronic) Reflex sympathetic dystrophy of the leg (Acute) Alcohol abuse (Chronic) Foot pain (Acute) Elevated liver function tests (Acute) Medical History Hx of traumatic brain injury Tachycardia persistent Aortic aneurysm Ataxia Leukocytoclastic vasculitis Gallbladder anomaly History of MD (myocardial infarction) Concussion with loss of consciousness Urinary frequency Hip pain, left Dental caries Dental infection Lyme disease Back pain Trauma Arthritis Cellulitis and abscess of foot Complicated grieving Insect bite Reaction, situational Dystonic tremor Dyspnea on exertion Fatigue due to old head injury Exposure to mercury Closed head injury Compression fracture of lumbar vertebra Chronic pain due to trauma DJD (degenerative joint disease) Depression Testosterone deficiency Traumatic amputation of finger Surgical History S/P cholecystectomy traumatic amputation Social History Smoking/Tobacco Use Status: Current every day Tobacco Type: cigarettes Smoking risk assessment performed?: Yes Alcohol Intake: current Alcohol Intake frequency: holidays/special occasions only Drug use: Daily Substance use type: marijuana Housing: other current occupation: disabled What is your relationship status?: Panel score (0-1 are the most socially isolated patients): 0 Do you feel safe at home: Yes Do you feel safe in your relationship?: Yes SDOH(Care Management) Screening Will the Patient Participate in the Screening?: Declined to provide
--- NOTE | 2023-11-25 19:41 | W.PM.DS.N ---
Date of service: 11/24/23 Time of Service: 18:37 DS: Diagnosis Discharge Diagnosis (1) Diabetic foot infection: Status: Acute (2) Dementia: Status: Chronic (3) PVD (peripheral vascular disease): Status: Chronic (4) Diabetes mellitus: Status: Chronic (5) GERD (gastroesophageal reflux disease): Status: Chronic (6) Hepatitis C: Status: Chronic (7) Narcotic dependence: Status: Acute (8) Chronic pain: Status: Chronic (9) Alcohol abuse: Status: Chronic Discharge Plan Disposition Patient Disposition: Against Medical Advice Condition: Poor Discharge Details Reason For Visit: Foot infection,Cellulitis Admit Date/Time: 11/23/23 19:21 Admit Provider: Conor Smiley Attending Provider: Conor Smiley Primary Care Provider: Ena Boo V Hospital Course Hospital Course: See H&P. Patient left AMA without regard to follow-up on infection with chaotic situation and multiple addictions and poor understanding with dementia but competent to make decision to leave. He should follow-up PCP or return to ER if wishes continued care. Home Meds and New Rx's Prescriptions: No Action nicotine (polacrilex) [Nicorette] 4 mg lozenge 4 mg MM Q4H nicotine [Nicoderm CQ] 14 mg/24 hr patch 24 hour 1 patch TD DAILY oxycodone 10 mg tablet 10 mg PO QID metformin 500 mg tablet 500 mg PO BID methadone 10 mg tablet 40 mg PO BID multivitamin tablet 1 tab PO DAILY albuterol sulfate [ProAir HFA] 90 mcg/actuation HFA aerosol inhaler 2 puff IH Q6H PRN latanoprost [Xalatan] 0.005 % drops 1 drp OP QPM dandelion root 525 mg capsule 525 mg PO DAILY AM burdock root 500 mg capsule PO milk thistle 150 mg capsule 150 mg PO BID Rx Instructions: dose unverified; give with meal/snack ascorbic acid (vitamin C) 1,000 mg capsule 1 g PO Q6H cholecalciferol (vitamin D3) 125 mcg (5,000 unit) capsule 125 mcg PO .3days/week magnesium oxide 400 mg magnesium capsule 400 mg PO DAILY amitriptyline 10 mg tablet 10 mg PO QHS naloxone 4 mg/actuation spray,non-aerosol 4 mg intranasal Q2M Rx Instructions: spray 1 dose into ONE nostril; alternate nostrils w each dose until help arrives budesonide-formoterol [Symbicort] 80-4.5 mcg/actuation HFA aerosol inhaler 2 puff inhalation BID doxycycline hyclate 100 mg capsule 100 mg PO BID Qty: 28 0RF pregabalin 50 mg capsule 100 mg PO QHS Patient Comments: TAKE TWO CAPSULES BY MOUTH AT BEDTIME Discharge Instructions Activity:: Left AMA Equipment/Supplies:: Left AMA Diet:: Left AMA Discharge Data Discharge Date/Time-TO BE ENTERED AT DEPARTURE: 11/24/23 18:37 Discharge Comment: Left AMA DS: Summary Time Spent with Patient providing and/or coordinating discharge services: Less than 30 minutes Status at Discharge Functional status at discharge: independent ambulation (Left AMA) Overall status at discharge: other (Left AMA) Mental Status: other (Mild dementia but competent to make decisions, left AMA) Speech and Movement: agitated (Uncooperative but competent to make decisions) Mood: other (Mild dementia but competent to make decisions, left AMA) Affect: irritable affect (Left AMA) Quality:SDOH Health Related Social Needs: No Data to Display Exam Narrative Exam Narrative: See exam upon admission the patient not examined prior to discharge leaving AMA. Psych Mental Status: other (Mild dementia but competent to make decisions, left AMA) Speech and Movement: agitated (Uncooperative but competent to make decisions) Mood: other (Mild dementia but competent to make decisions, left AMA) Affect: irritable affect (Left AMA) DS: Data Vitals/I&O Vitals and I&O: Vital Signs Temperature 36.9 C 11/23/23 16:42 Temperature Source Temporal Artery Scan 11/23/23 16:42 Pulse 92 H 11/23/23 20:44 Pulse Rhythm Regular 11/24/23 18:25 Pulse 98 H 11/23/23 17:50 Respiratory Rate 20 11/23/23 20:44 Respiratory Effort Normal, Non-Labored 11/24/23 18:25 Respiratory Depth Normal 11/24/23 18:25 Blood Pressure 121/73 11/23/23 20:44 Blood Pressure Mean 96 11/23/23 17:46 Blood Pressure Position Sitting 11/23/23 16:42 Pulse Oximetry 96 11/23/23 20:44 Oxygen Delivery Method Room Air 11/23/23 20:44 Oxygen Flow Rate 0 11/23/23 20:44 Pain Level 5 11/24/23 03:44 Intake & Output 11/24/23 11/25/23 11/25/23 23:59 11:59 23:59 Other: Urine Appearance Clear Data Completed and Pending Completed studies during hospitalization [Text1]: Left AMA Pending studies at discharge: Left AMA Labs on day of discharge: 11/24/23 09:00 Leg - Right Anaerobic Culture - Pending 11/24/23 08:00 Foot - Left Anaerobic Culture - Pending Preliminary micro results at discharge 11/24/23 09:00 Wound Culture - Preliminary Leg - Right 11/24/23 08:00 Wound Culture - Preliminary Foot - Left 11/23/23 18:30 Blood Culture - Preliminary Blood NO GROWTH 24 HOURS 11/23/23 17:55 Blood Culture - Preliminary Blood NO GROWTH 24 HOURS 11/24/23 09:00 Anaerobic Culture - Pending Leg - Right 11/24/23 08:00 Anaerobic Culture - Pending Foot - Left Additional Comments Additional comments: Left AMA PFSH All Active Problems Cellulitis (Acute) Diabetic foot infection (Acute) Right calf pain (Acute) Ulcer of left foot with fat layer exposed (Acute) Ulcer of right lower extremity with fat layer exposed (Acute) Abscess of left foot including toes (Acute) Polyneuropathy (Acute) Major depression (Chronic) Glaucoma (Chronic) Babesiosis (Acute) Anxiety disorder (Acute) Cellulitis of right lower limb (Acute) Testicular hypofunction (Acute) Dementia (Chronic) PVD (peripheral vascular disease) (Chronic) Pain in right foot (Acute) Pain in left foot (Acute) Memory impairment (Acute) Diabetes mellitus (Chronic) GERD (gastroesophageal reflux disease) (Chronic) Hepatitis B core antibody positive (Acute) Nicotine dependence (Acute) Elevated blood sugar (Acute) Hepatitis C (Chronic) chronic Iron deficiency anemia (Acute) h/o babesiosis infection Narcotic dependence (Acute) Lumbar radiculopathy (Acute) Neuropathy (Acute) Anxiety (Chronic) Tobacco dependence (Acute) Chronic pain (Chronic) Reflex sympathetic dystrophy of the leg (Acute) Alcohol abuse (Chronic) Foot pain (Acute) Elevated liver function tests (Acute) Medical History Hx of traumatic brain injury Tachycardia persistent Aortic aneurysm Ataxia Leukocytoclastic vasculitis Gallbladder anomaly History of ND (myocardial infarction) Concussion with loss of consciousness Urinary frequency Hip pain, left Dental caries Dental infection Lyme disease Back pain Trauma Arthritis Cellulitis and abscess of foot Complicated grieving Insect bite Reaction, situational Dystonic tremor Dyspnea on exertion Fatigue due to old head injury Exposure to mercury Closed head injury Compression fracture of lumbar vertebra Chronic pain due to trauma DJD (degenerative joint disease) Depression Testosterone deficiency Traumatic amputation of finger Surgical History S/P cholecystectomy traumatic amputation Social History Smoking/Tobacco Use Status: Current every day Tobacco Type: cigarettes Smoking risk assessment performed?: Yes Alcohol Intake: current Alcohol Intake frequency: holidays/special occasions only Drug use: Daily Substance use type: marijuana Housing: other current occupation: disabled What is your relationship status?: Panel score (0-1 are the most socially isolated patients): 0 Do you feel safe at home: Yes Do you feel safe in your relationship?: Yes Time Spent with Patient Time Spent with Patient: <45 minutes Time was spent: other (Patient left AMA without being seen by day hospitalist with patient leaving before 19:00.)
== END 2023-11-24 18:37 | disposition left against medical advice (07) | DRG 638 ==
LOC: ER 20:02 → MS 20:28
PROVIDERS: Internal Medicine; Admitting Provider General Practice; Emergency Provider Emergency Medicine; PCP Family Medicine; Visit Provider General Practice
DX: E11.628 Type 2 diabetes mellitus with other skin complications (principal); F11.20 Opioid dependence, uncomplicated; L03.116 Cellulitis of left lower limb; L97.912 Non-pressure chronic ulcer of unspecified part of right lower leg with fat layer exposed; L02.612 Cutaneous abscess of left foot; L03.115 Cellulitis of right lower limb; L97.522 Non-pressure chronic ulcer of other part of left foot with fat layer exposed; E11.42 Type 2 diabetes mellitus with diabetic polyneuropathy; R41.3 Other amnesia; R76.8 Other specified abnormal immunological findings in serum; F17.210 Nicotine dependence, cigarettes, uncomplicated; I73.9 Peripheral vascular disease, unspecified; G89.29 Other chronic pain; F41.9 Anxiety disorder, unspecified; F03.90 Unspecified dementia, unspecified severity, without behavioral disturbance, psychotic disturbance, mood disturbance, and anxiety; K21.9 Gastro-esophageal reflux disease without esophagitis; B18.2 Chronic viral hepatitis C; Z87.820 Personal history of traumatic brain injury; I25.2 Old myocardial infarction; G25.2 Other specified forms of tremor; F32.A Depression, unspecified
CPT/HCPCS: 00123; 36415; 36416; 80048; 80053; 82962; 84145; 85652; 87040; 87077; 96365; 96366; 99222; 99285; 73630; 80202; 83036; 83735; 84443; 85025; 86140; 87070; 87075; 87186; 87205; 99232; 99238; J2060; J2543; J3372

== ENCOUNTER → 2023-12-06 14:37 | Outpatient (BNVA) | payer OTHER, SELFPAY | PROVIDERS: PCP Family Medicine; Referring Provider Family Medicine; Visit Provider Podiatrist | DX: L02.612 Cutaneous abscess of left foot; L03.90 Cellulitis, unspecified; L97.522 Non-pressure chronic ulcer of other part of left foot with fat layer exposed; L97.912 Non-pressure chronic ulcer of unspecified part of right lower leg with fat layer exposed; M79.661 Pain in right lower leg; L84 Corns and callosities; M79.672 Pain in left foot; M79.671 Pain in right foot; I73.9 Peripheral vascular disease, unspecified; E11.9 Type 2 diabetes mellitus without complications | CPT/HCPCS: 11042; 97597 ==

== ENCOUNTER → 2023-12-21 15:05 | Outpatient (BNVA) | payer OTHER, SELFPAY | PROVIDERS: PCP Family Medicine; Referring Provider Family Medicine; Visit Provider Podiatrist | DX: E11.621 Type 2 diabetes mellitus with foot ulcer; L03.90 Cellulitis, unspecified; L02.612 Cutaneous abscess of left foot; L97.522 Non-pressure chronic ulcer of other part of left foot with fat layer exposed; I73.9 Peripheral vascular disease, unspecified; L97.912 Non-pressure chronic ulcer of unspecified part of right lower leg with fat layer exposed; M79.661 Pain in right lower leg; M79.672 Pain in left foot; M79.671 Pain in right foot; L84 Corns and callosities; R09.89 Other specified symptoms and signs involving the circulatory and respiratory systems; L65.9 Nonscarring hair loss, unspecified; R23.8 Other skin changes; L60.3 Nail dystrophy; Q84.5 Enlarged and hypertrophic nails; B35.1 Tinea unguium; G62.89 Other specified polyneuropathies | CPT/HCPCS: 11055 ==

== ENCOUNTER → 2024-01-19 15:59 | Outpatient (BNVA) | payer OTHER, SELFPAY | PROVIDERS: PCP Family Medicine; Referring Provider Family Medicine; Visit Provider Podiatrist | DX: L02.612 Cutaneous abscess of left foot; L97.522 Non-pressure chronic ulcer of other part of left foot with fat layer exposed; L97.912 Non-pressure chronic ulcer of unspecified part of right lower leg with fat layer exposed; M79.672 Pain in left foot; M79.671 Pain in right foot; I73.9 Peripheral vascular disease, unspecified; M79.661 Pain in right lower leg; L84 Corns and callosities; E11.9 Type 2 diabetes mellitus without complications | CPT/HCPCS: 11055 ==

== ENCOUNTER → 2024-04-26 14:01 | Outpatient (BNVA) | payer OTHER, SELFPAY | PROVIDERS: PCP Family Medicine; Referring Provider Family Medicine; Visit Provider Podiatrist | DX: I70.203 Unspecified atherosclerosis of native arteries of extremities, bilateral legs; B35.1 Tinea unguium; L60.3 Nail dystrophy; M79.671 Pain in right foot; M79.672 Pain in left foot; L02.612 Cutaneous abscess of left foot; E11.9 Type 2 diabetes mellitus without complications; L97.522 Non-pressure chronic ulcer of other part of left foot with fat layer exposed; L97.912 Non-pressure chronic ulcer of unspecified part of right lower leg with fat layer exposed; M79.661 Pain in right lower leg; L84 Corns and callosities | CPT/HCPCS: 11721 ==

== ENCOUNTER → 2024-04-26 14:03 | Outpatient (BNVA) | payer OTHER, SELFPAY | PROVIDERS: PCP Family Medicine; Referring Provider Family Medicine; Visit Provider Physical Therapy Assistant | DX: I73.9 Peripheral vascular disease, unspecified (principal) | CPT/HCPCS: 99212 ==